=== PATIENT | female | born 1935 | race Caucasian/White ===

== ENCOUNTER 2017-08-08 10:50 | Outpatient (CLI) | payer MEDICARE ==
[2017-08-08] VITALS (16 sets, daily range): BP systolic 62–118; BP diastolic 41–76
[~2017-08-08 10:50] MED LIST: AMIO200T57 PO; APIX5TAB3 PO; ATOR10TA87 PO; CALC-855 PO; COR3.125T PO; FOLI1TAB16 PO; IRBE300T19 PO; MAGN500C16 PO; SPIR25TA3 PO; THI100T PO
== END 2017-08-08 23:59 | disposition home or self-care (01) ==
LOC: CARD DIAG 10:50
PROVIDERS: ATTEND Internal Medicine Cardiovascular Disease
DX: R42 Dizziness and giddiness (principal); I10 Essential (primary) hypertension; E11.9 Type 2 diabetes mellitus without complications; Z85.3 Personal history of malignant neoplasm of breast
CPT/HCPCS: 93660

== ENCOUNTER 2018-07-09 15:36 | Outpatient (CLI) | payer MEDICARE, MEDICAID ==
[~2018-07-09] VITALS: Ht 147.3 cm; Wt 55.8 kg
[~2018-07-09 15:36] MED LIST changes: +AMIO200T40 PO; -AMIO200T57 PO; -SPIR25TA3 PO; +SPIR25TA5 PO
[2018-07-09 16:16] LABS: TOTAL HEMOGLOBIN 14.6 G/dl (12.0-16.0)
[2018-07-09] MEDS ORDERED: albuterol 2.5 MG/3 ML nebule NEB ONE (16:40)
== END 2018-07-09 23:59 | disposition home or self-care (01) ==
LOC: RT 15:36
PROVIDERS: ATTEND Internal Medicine Cardiovascular Disease
DX: Z51.81 Encounter for therapeutic drug level monitoring (principal); R91.8 Other nonspecific abnormal finding of lung field; I10 Essential (primary) hypertension; E11.9 Type 2 diabetes mellitus without complications; Z79.899 Other long term (current) drug therapy; Z90.710 Acquired absence of both cervix and uterus
CPT/HCPCS: 71046; 85018; 94010; 94727; 94729

== ENCOUNTER 2018-12-14 05:35 | Inpatient (IN) | payer MEDICARE, MEDICAID ==
[2018-12-14] VITALS (33 sets, daily range): BP systolic 87–121; BP diastolic 44–58
[~2018-12-14] VITALS: Ht 154.9 cm; Wt 74.5 kg
[~2018-12-14 05:35] MED LIST changes: -AMIO200T40 PO; +AMIO200T61 PO
--- NOTE | 2018-12-14 05:50 | NUR ---
WHEN PT IS READY TO GO HOME CALL THE SON. HIS NAME IS CHARLIE [phone]
[2018-12-14 06:16] LABS: BASOPHILS % (AUTO) 0.6 % (0-1); EOSINOPHILS % (AUTO) 0.1 % (0-6); LYMPHOCYTES # (AUTO) 1.3 X10'3 (1.1-4.8); LYMPHOCYTES % (AUTO) 22.9 % (21-51); MEAN CORPUSCULAR HEMOGLOBIN 33.6 PG (27.0-31.0); MEAN CORPUSCULAR HGB CONC 33.1 g/dL (33.0-36.5); MEAN CORPUSCULAR VOLUME 101.5 FL (78-98); MEAN PLATELET VOLUME 8.3 FL (7.4-10.4); MONOCYTES # (AUTO) 0.4 X10'3 (0-0.9); MONOCYTES % (AUTO) 7.8 % (2-12); NEUTROPHILS # (AUTO) 3.8 X10'3 (1.8-7.7); NEUTROPHILS % (AUTO) 68.6 % (42-75); PLATELET COUNT 89 X10'3 (140-440); RED CELL DISTRIBUTION WIDTH 14.2 % (11.5-14.5); WHITE BLOOD COUNT 5.6 X10'3 (4.5-11.0)
[2018-12-14 06:37] LABS: ALANINE AMINOTRANSFERASE 14 U/L (12-78); ALBUMIN 1.5 G/DL (3.4-5.0); ALBUMIN/GLOBULIN RATIO 0.5 (1.1-1.5); ALKALINE PHOSPHATASE 45 IU/L (46-116); ANION GAP 17 (8-16); ASPARTATE AMINO TRANSFERASE 18 U/L (10-37); BILIRUBIN,TOTAL 0.2 MG/DL (0.1-1.0); CALCIUM 7.2 MG/DL (8.5-10.1); CHLORIDE 105 MMOL/L (99-107); CREATININE 5.28 MG/DL (0.40-0.90); GLUCOSE 97 MG/DL (70-104); LIPASE 159 U/L (73-393); POTASSIUM 4.9 MMOL/L (3.5-5.1); SODIUM 136 MMOL/L (135-145); TOTAL PROTEIN 4.3 G/DL (6.4-8.2); eGFR 8 ML/MIN
[2018-12-14 06:39] LABS: BLOOD UREA NITROGEN 161 MG/DL (7-18); BUN/CREATININE RATIO 30.5 (6.6-38.0)
[2018-12-14 06:42] LABS: TOTAL CARBON DIOXIDE 13.7 MMOL/L (24-32)
[2018-12-14 07:12] LABS: HEMATOCRIT 18.2 % (35.0-45.0)
--- NOTE | 2018-12-14 07:27 | NUR ---
NO BLOOD band placed on pt. after confirming that pt. is [facility]. Dr. Prescott aware.
[2018-12-14 07:29] LABS: CLARITY,URINE CLOUDY (Clear); COLOR,URINE YELLOW (Yellow); GLUCOSE, URINE NEGATIVE (Neg); KETONES,URINE TRACE mg/dl (Neg); LEUKOCYTE ESTERASE ,URINE LARGE (Neg); NITRITES, URINE NEGATIVE (Neg); OCCULT BLOOD,URINE LARGE (Neg); PROTEIN,URINE 30 mg/dl (Neg); UROBILINOGEN,URINE 0.2 E.U/dL (0.2-1.0)
[2018-12-14] MEDS ORDERED: ondansetron/PF 4mg/2ml inj IV ONE (07:30)
[2018-12-14] MEDS ORDERED: tranexamic acid 100mg/ml inj. IV ONE (07:30)
[2018-12-14] MEDS ORDERED: pantoprazole 40 MG vial IV ONE ×2 (07:30→07:35)
[2018-12-14] MEDS ORDERED: normal saline 1000ML IV soln IVB ONE ×2 (07:30→10:15)
[2018-12-14 07:33] LABS: UA COLLECTION TYPE CLN CATCH MIDSTREAM
[2018-12-14] MEDS ORDERED: octreotide 100mcg/1 ml ampule IV ONE (07:35)
[2018-12-14 07:40] LABS: SQUAMOUS EPITHELIAL CELL,UR MANY /LPF (FEW)
[2018-12-14] MEDS: morphine 2 MG/ML inj. syringe IV PRN (07:41)
[2018-12-14 07:43] LABS: AMORPHOUS URATES 1+; BACTERIA,URINE 2+ /HPF (Neg); RBC,URINE 0-2 /HPF (0-2); RENAL CELLS, URINE MODERATE /HPF; WBC,URINE TNTC /HPF (0-4)
--- NOTE | 2018-12-14 07:55 | NUR ---
PT TAKEN OUT TO CT VIA GURNEY BY Agolo.
--- NOTE | 2018-12-14 08:04 | NUR ---
PT BACK FROM CT.
--- NOTE | 2018-12-14 08:58 | NUR ---
Justus Espitia here to see pt. States she will page the hospitalist service to admit pt. VSS.
[2018-12-14] MEDS ORDERED: normal saline 1000ml 1,000 ML IV ONE (09:00)
[2018-12-14] MEDS ORDERED: normal saline 1000ml 1,000 ML IV SCH (09:51)
[2018-12-14] MEDS ORDERED: acetaminophen 325mg tablet PO PRN ×2 (09:55)
--- NOTE | 2018-12-14 10:44 | NUR ---
Dr. Prescott placing a central line in pt.
--- NOTE | 2018-12-14 11:18 | NUR ---
Dr. Prescott adjusting placement of CVL. Waiting to hang Levo until placement can be verified.
[2018-12-14] MEDS: NORepinephrine 8mg/ 250ml NS 250 ML IV PRN (11:27)
--- NOTE | 2018-12-14 12:30 | NUR ---
The patient, SYLVIA CHEN, 83 y/o, F admitted by TAYLER SPAIN MD, was given written information regarding hospital policies, unit procedures and contact persons. See Admission information.
[2018-12-14 13:30] LABS: HEMOGLOBIN A1C 4.7 % (4.5-6.2)
[2018-12-14] MEDS: SODIUM BICARBONATE IV SCH ×2 (14:30→21:22)
[2018-12-14] MEDS: WATER IV SCH ×2 (14:30→21:22)
[2018-12-14] MEDS: DEXTROSE IV SCH ×2 (14:30→21:22)
[2018-12-14] MEDS ORDERED: FURO-150 PO (17:55)
[2018-12-14] MEDS ORDERED: LEVO25TA2 PO (17:55)
--- NOTE | 2018-12-14 18:04 | NUR ---
Problems reprioritized. Patient report given, questions answered & plan of care reviewed with oncoming shift.
--- NOTE | 2018-12-14 18:25 | NUR ---
Patient in room CICU 2007. I have received report from Bella GRANT and had the opportunity to ask questions and assume patient care. Pt received awake & alert watching TV. No SOB no distress O2 @2L NC. Rhythm is sinus without ectopy.
[2018-12-14] MEDS ORDERED: epoetin 20,000 units/ml inj SQ ONE (18:50)
[2018-12-14 20:27] LABS: TOTAL PROTEIN,URINE RANDOM 41.3 MG/DL
[2018-12-15] VITALS (53 sets, daily range): BP systolic 83–131; BP diastolic 38–78
--- NOTE | 2018-12-15 02:15 | NUR ---
CVP reads -1, -3. Line zeroed and dressing taken down to check for kinks. No kinks found. CVP line is not sutured in. Donner is sutured in and CVP line does not clip into anchor. Line taped securely in place. Bob Lucero aware of CVP readings. MAP >65 while on levophed drip @ 8mcg/min. No new orders at this time. Addendum: 12/15/18 at 0231 by Leila Kaplan RN Pt is awake & alert watching TV.
[2018-12-15] MEDS ORDERED: diphenhydrAMINE 25mg capsule PO PRN (03:45)
[2018-12-15] MEDS ORDERED: glucagon, human recombinant 1mg kit SUBCUT PRN (04:10)
[2018-12-15] MEDS ORDERED: MESSAGE TO PHARMACY PO ONE (04:10)
[2018-12-15] MEDS ORDERED: dextrose ORAL solution 15 GM/59 ML bottle PO PRN ×2 (04:10)
[2018-12-15] MEDS ORDERED: dextrose 50%-water 50ml dispensing syringe IV PRN ×2 (04:10)
[2018-12-15 04:20] LABS: ALANINE AMINOTRANSFERASE 16 U/L (12-78); ALBUMIN 1.6 G/DL (3.4-5.0); ALBUMIN/GLOBULIN RATIO 0.6 (1.1-1.5); ALKALINE PHOSPHATASE 56 IU/L (46-116); ANION GAP 17 (8-16); ASPARTATE AMINO TRANSFERASE 20 U/L (10-37); BASOPHILS % (AUTO) 0.4 % (0-1); BILIRUBIN,TOTAL 0.2 MG/DL (0.1-1.0); BLOOD UREA NITROGEN 129 MG/DL (7-18); BUN/CREATININE RATIO 32.1 (6.6-38.0); CALCIUM 6.5 MG/DL (8.5-10.1); CHLORIDE 106 MMOL/L (99-107); CREATININE 4.02 MG/DL (0.40-0.90); EOSINOPHILS % (AUTO) 0.5 % (0-6); GLUCOSE 168 MG/DL (70-104); LYMPHOCYTES # (AUTO) 0.8 X10'3 (1.1-4.8); LYMPHOCYTES % (AUTO) 15.5 % (21-51); MEAN CORPUSCULAR HEMOGLOBIN 34.6 PG (27.0-31.0); MEAN CORPUSCULAR HGB CONC 32.9 g/dL (33.0-36.5); MEAN CORPUSCULAR VOLUME 105.1 FL (78-98); MEAN PLATELET VOLUME 8.2 FL (7.4-10.4); MONOCYTES # (AUTO) 0.3 X10'3 (0-0.9); MONOCYTES % (AUTO) 6.6 % (2-12); NEUTROPHILS # (AUTO) 3.7 X10'3 (1.8-7.7); PLATELET COUNT 57 X10'3 (140-440); POTASSIUM 4.1 MMOL/L (3.5-5.1); RED BLOOD COUNT 1.11 X10'6 (4.20-5.60); RED CELL DISTRIBUTION WIDTH 14.4 % (11.5-14.5); SODIUM 136 MMOL/L (135-145); TOTAL PROTEIN 4.5 G/DL (6.4-8.2); WHITE BLOOD COUNT 4.9 X10'3 (4.5-11.0); eGFR 11 ML/MIN
[2018-12-15 04:22] LABS: TOTAL CARBON DIOXIDE 12.9 MMOL/L (24-32)
[2018-12-15 04:28] LABS: HEMOGLOBIN 3.8 g/dl (12.0-16.0)
[2018-12-15 04:29] LABS: HEMATOCRIT 11.6 % (35.0-45.0)
--- NOTE | 2018-12-15 04:30 | NUR ---
Lab results reported to Bob Lucero. Hgb 3.3 Hct 11.6. No new orders at this time.
--- NOTE | 2018-12-15 04:43 | NUR ---
Bladder scan done as pt has no urge to void. Findings of 132ml urine in bladder.
[2018-12-15] MEDS ORDERED: iron sucrose complex injection 300 MG in normal saline 250ml IV soln 235 ML IV ONE (05:15)
[2018-12-15] MEDS: WATER IV SCH (05:17)
[2018-12-15] MEDS: SODIUM BICARBONATE IV SCH (05:17)
[2018-12-15] MEDS: DEXTROSE IV SCH (05:17)
[2018-12-15] MEDS ORDERED: sodium bicarbonate (8.4%) 1 mEq/ml syringe IV ONE (05:20)
[2018-12-15] MEDS: NORepinephrine 8mg/ 250ml NS 250 ML IV PRN ×2 (05:32→20:10)
--- NOTE | 2018-12-15 06:27 | NUR ---
Problems reprioritized. Patient report given, questions answered & plan of care reviewed with Deepa GRANT.
--- NOTE | 2018-12-15 06:34 | NUR ---
Patient in room CICU 2007. I have received report from Leila GRANT.
[2018-12-15] MEDS: atorvastatin 10mg tablet PO SCH (07:08)
[2018-12-15] MEDS: levoTHYROXINE 25mcg tablet PO SCH (07:08)
[2018-12-15] MEDS: folic acid 1mg tablet PO SCH (07:08)
[2018-12-15] MEDS: thiamine 100mg tablet PO SCH (07:08)
[2018-12-15] MEDS: calcium carbonate/vitamin D3 tablet PO SCH (07:08)
[2018-12-15] MEDS: sodium bicarbonate inj. 75 ML in dextrose 5% water 500ml 500 ML IV SCH ×3 (07:35→20:19)
[2018-12-15] MEDS: insulin Lispro (HumaLOG) vial - multi-dose SQ SCH ×2 (08:06→20:45)
[2018-12-15 09:48] LABS: MEAN CORPUSCULAR HEMOGLOBIN 34.7 PG (27.0-31.0); MEAN PLATELET VOLUME 8.6 FL (7.4-10.4); PLATELET COUNT 97 X10'3 (140-440); RED BLOOD COUNT 1.88 X10'6 (4.20-5.60); WHITE BLOOD COUNT 8.7 X10'3 (4.5-11.0)
[2018-12-15 09:52] LABS: HEMOGLOBIN 6.5 g/dl (12.0-16.0)
[2018-12-15 09:53] LABS: HEMATOCRIT 19.2 % (35.0-45.0)
[2018-12-15] MEDS ORDERED: normal saline 1000ml 1,000 ML IV ONE ×2 (10:50→11:50)
--- NOTE | 2018-12-15 11:00 | NUR ---
Per low albumin, RN recommends albumin. Dr. Land, no albumin ordered.
[2018-12-15 11:02] LABS: ALBUMIN 1.8 G/DL (3.4-5.0); ANION GAP 14 (8-16); BLOOD UREA NITROGEN 125 MG/DL (7-18); BUN/CREATININE RATIO 29.8 (6.6-38.0); CHLORIDE 103 MMOL/L (99-107); GLUCOSE 142 MG/DL (70-104); SODIUM 137 MMOL/L (135-145); TOTAL CARBON DIOXIDE 20.3 MMOL/L (24-32); eGFR 10 ML/MIN
[2018-12-15 11:05] LABS: PHOSPHORUS 4.2 MG/DL (2.3-4.5); POTASSIUM 4.2 MMOL/L (3.5-5.1)
[2018-12-15] MEDS ORDERED: PEG 3350/Na sulf,bicarb,Cl/KCl oral sol 4 liter bottle PO ONE (11:30)
[2018-12-15] MEDS: sodium ferric gluc complex inj 125 MG in normal saline 100ml IV soln 100 ML IV SCH (13:18)
[2018-12-15] MEDS: morphine 2 MG/ML inj. syringe IV PRN (14:21)
[2018-12-15 14:44] LABS: CLARITY,URINE CLOUDY (Clear); COLOR,URINE YELLOW (Yellow); GLUCOSE, URINE NEGATIVE (Neg); KETONES,URINE NEGATIVE (Neg); LEUKOCYTE ESTERASE ,URINE NEGATIVE (Neg); NITRITES, URINE NEGATIVE (Neg); OCCULT BLOOD,URINE LARGE (Neg); PROTEIN,URINE NEGATIVE (Neg); UROBILINOGEN,URINE 0.2 E.U/dL (0.2-1.0)
[2018-12-15] MEDS: ondansetron/PF 4mg/2ml inj IV PRN (14:48)
[2018-12-15 14:53] LABS: UA COLLECTION TYPE FOLEY CATH
--- NOTE | 2018-12-15 14:53 | NUR ---
pt. reporting 8/10 generalized abdominal pain accompanied by nausea. Morphine and zofran given with good affect
[2018-12-15 14:58] LABS: AMORPHOUS URATES 2+; BACTERIA,URINE NONE SEEN /HPF (Neg); SQUAMOUS EPITHELIAL CELL,UR FEW /LPF (FEW)
[2018-12-15 15:00] LABS: WBC,URINE 0-4 /HPF (0-4)
[2018-12-15 15:56] LABS: UA EOSINOPHILS NO EOS /HPF
--- NOTE | 2018-12-15 17:18 | NUR ---
Pt. requiring increased rate of levophed and tachycardic to the 110s. 250cc bolus of NS given with good affect. MAP goal achieved.
[2018-12-15] MEDS ORDERED: albumin (human) 25% 100 ML IV solution IV ONE ×2 (18:00)
[2018-12-15] MEDS ORDERED: albumin (human) 25% 100ml IV 300 ML IV ONE (18:00)
--- NOTE | 2018-12-15 18:45 | NUR ---
Dr. Woods notified regarding pt's increased need of levophed to try and achieve MAP goal. Per Dr. Woods 300cc of 25% albumin to be given; pt. agreed to receiving the albumin. Levophed gtt at [facility] [place]. Amanda from social service agency director contacted regarding granddaughter's report of neglect; Tripp from [facility] notified regarding granddaughter's report. director of food and nutrition services consult ordered. Report given to Leila GRANT.
[2018-12-15] MEDS: insulin glargine (Lantus) pen - multi-dose SQ SCH (20:43)
[2018-12-16] VITALS (45 sets, daily range): BP systolic 88–126; BP diastolic 43–85
[2018-12-16 01:59] LABS: BASOPHILS % (AUTO) 0.2 % (0-1); EOSINOPHILS % (AUTO) 0 % (0-6); LYMPHOCYTES # (AUTO) 1.2 X10'3 (1.1-4.8); LYMPHOCYTES % (AUTO) 11.5 % (21-51); MEAN CORPUSCULAR HEMOGLOBIN 33.7 PG (27.0-31.0); MEAN CORPUSCULAR HGB CONC 33.5 g/dL (33.0-36.5); MEAN CORPUSCULAR VOLUME 100.4 FL (78-98); MEAN PLATELET VOLUME 8.5 FL (7.4-10.4); MONOCYTES # (AUTO) 0.5 X10'3 (0-0.9); MONOCYTES % (AUTO) 4.8 % (2-12); NEUTROPHILS % (AUTO) 83.5 % (42-75); PLATELET COUNT 66 X10'3 (140-440); RED BLOOD COUNT 1.67 X10'6 (4.20-5.60); WHITE BLOOD COUNT 10.8 X10'3 (4.5-11.0)
[2018-12-16 02:03] LABS: HEMOGLOBIN 5.6 g/dl (12.0-16.0)
[2018-12-16 02:04] LABS: HEMATOCRIT 16.7 % (35.0-45.0)
[2018-12-16] MEDS: insulin Lispro (HumaLOG) vial - multi-dose SQ SCH (02:10)
[2018-12-16 02:13] LABS: ALANINE AMINOTRANSFERASE 14 U/L (12-78); ALBUMIN/GLOBULIN RATIO 1.6 (1.1-1.5); ALKALINE PHOSPHATASE 37 IU/L (46-116); ANION GAP 12 (8-16); ASPARTATE AMINO TRANSFERASE 11 U/L (10-37); BILIRUBIN,TOTAL 0.3 MG/DL (0.1-1.0); BLOOD UREA NITROGEN 107 MG/DL (7-18); BUN/CREATININE RATIO 29.5 (6.6-38.0); CALCIUM 6.6 MG/DL (8.5-10.1); CHLORIDE 105 MMOL/L (99-107); CREATININE 3.63 MG/DL (0.40-0.90); GLUCOSE 185 MG/DL (70-104); POTASSIUM 3.6 MMOL/L (3.5-5.1); SODIUM 140 MMOL/L (135-145); TOTAL CARBON DIOXIDE 22.9 MMOL/L (24-32); TOTAL PROTEIN 4.9 G/DL (6.4-8.2); eGFR 12 ML/MIN
[2018-12-16] MEDS: sodium bicarbonate inj. 75 ML in dextrose 5% water 500ml 500 ML IV SCH (04:02)
[2018-12-16] MEDS: NORepinephrine 8mg/ 250ml NS 250 ML IV PRN ×2 (05:15→18:51)
[2018-12-16] MEDS: thiamine 100mg tablet PO SCH (07:00)
[2018-12-16] MEDS: calcium carbonate/vitamin D3 tablet PO SCH (07:00)
[2018-12-16] MEDS: folic acid 1mg tablet PO SCH (07:00)
[2018-12-16] MEDS: levoTHYROXINE 25mcg tablet PO SCH (07:00)
[2018-12-16] MEDS: atorvastatin 10mg tablet PO SCH (07:00)
[2018-12-16] MEDS: sodium ferric gluc complex inj 125 MG in normal saline 100ml IV soln 100 ML IV SCH (08:22)
[2018-12-16] MEDS ORDERED: potassium Cl 20mEq/100mL bag 100 ML IV PRN (10:35)
[2018-12-16 10:46] LABS: MAGNESIUM 1.6 MG/DL (1.5-2.4)
[2018-12-16] MEDS ORDERED: potassium Cl 20 mEq SR tablet PO PRN (11:35)
[2018-12-16] MEDS ORDERED: magnesium 2GM in 50ml NS 50 ML IV ONE (12:10)
[2018-12-16] MEDS: normal saline 1000ml 1,000 ML IV SCH (12:15)
--- NOTE | 2018-12-16 12:39 | NUR ---
pt blood sugar 50. pt states lightheaded. gave glucoshot x2. primary RN notified.
[2018-12-16] MEDS: potassium Cl 20 mEq SR tablet PO PRN (12:48)
--- NOTE | 2018-12-16 16:14 | NUR ---
pt. feeling tired. Blood sugar 117. Blood pressure MAP goal achieved with levophed gtt running.
--- NOTE | 2018-12-16 19:36 | NUR ---
Patient in room CICU 2007. I have received report and had the opportunity to ask questions and assume patient care.
[2018-12-16] MEDS: insulin glargine (Lantus) pen - multi-dose SQ SCH (21:00)
--- NOTE | 2018-12-16 22:00 | NUR ---
pt is resting. vital signs stable. no s/s of distress or change in condition noted. will continue to monitor.
[2018-12-17] VITALS (23 sets, daily range): BP systolic 89–122; BP diastolic 48–67
--- NOTE | 2018-12-17 | NUR ---
pt is resting. vital signs stable. no s/s of distress or change in condition noted. will continue to monitor.
--- NOTE | 2018-12-17 02:00 | NUR ---
pt is resting. vital signs stable. no s/s of distress or change in condition noted. will continue to monitor.
[2018-12-17] MEDS: normal saline 1000ml 1,000 ML IV SCH ×2 (02:18→16:34)
[2018-12-17 02:52] LABS: BASOPHILS % (AUTO) 0.5 % (0-1); EOSINOPHILS # (AUTO) 0.1 X10'3 (0-0.9); EOSINOPHILS % (AUTO) 1.1 % (0-6); LYMPHOCYTES # (AUTO) 1.7 X10'3 (1.1-4.8); LYMPHOCYTES % (AUTO) 18.9 % (21-51); MEAN CORPUSCULAR HEMOGLOBIN 33.9 PG (27.0-31.0); MEAN CORPUSCULAR HGB CONC 33.7 g/dL (33.0-36.5); MEAN CORPUSCULAR VOLUME 100.5 FL (78-98); MEAN PLATELET VOLUME 8.7 FL (7.4-10.4); MONOCYTES # (AUTO) 0.8 X10'3 (0-0.9); MONOCYTES % (AUTO) 8.5 % (2-12); NEUTROPHILS # (AUTO) 6.4 X10'3 (1.8-7.7); PLATELET COUNT 66 X10'3 (140-440); RED BLOOD COUNT 1.81 X10'6 (4.20-5.60); RED CELL DISTRIBUTION WIDTH 14.6 % (11.5-14.5)
[2018-12-17 02:59] LABS: HEMATOCRIT 18.2 % (35.0-45.0); HEMOGLOBIN 6.1 g/dl (12.0-16.0)
[2018-12-17 03:07] LABS: ANION GAP 6 (8-16); CHLORIDE 106 MMOL/L (99-107); GLUCOSE 146 MG/DL (70-104); POTASSIUM 4.5 MMOL/L (3.5-5.1); SODIUM 139 MMOL/L (135-145); TOTAL CARBON DIOXIDE 27.4 MMOL/L (24-32)
[2018-12-17 03:08] LABS: ALANINE AMINOTRANSFERASE 13 U/L (12-78); ALBUMIN 2.5 G/DL (3.4-5.0); ALBUMIN/GLOBULIN RATIO 1.1 (1.1-1.5); ALKALINE PHOSPHATASE 46 IU/L (46-116); ASPARTATE AMINO TRANSFERASE 15 U/L (10-37); BILIRUBIN,TOTAL 0.3 MG/DL (0.1-1.0); BLOOD UREA NITROGEN 96 MG/DL (7-18); BUN/CREATININE RATIO 28.2 (6.6-38.0); CALCIUM 7.4 MG/DL (8.5-10.1); TOTAL PROTEIN 4.7 G/DL (6.4-8.2); eGFR 13 ML/MIN
[2018-12-17 03:25] LABS: BANDS% (MANUAL) 4 % (0-10); EOSINOPHILS % (MANUAL) 2 % (0-6); LYMPHOCYTES % (MANUAL) 13 % (21-51); MONOCYTES % (MANUAL) 8 % (2-12); NEUTROPHILS % (MANUAL) 70 % (42-75); PLATELET ESTIMATE DECREASED; REACTIVE LYMPHOCYTES % 3 % (0-0); TOTAL CELLS COUNTED 100
[2018-12-17 03:26] LABS: HYPOCHROMASIA 1+
--- NOTE | 2018-12-17 04:32 | NUR ---
pt is resting. vital signs stable. no s/s of distress or change in condition noted. will continue to monitor.
[2018-12-17] MEDS: NORepinephrine 8mg/ 250ml NS 250 ML IV PRN (05:34)
--- NOTE | 2018-12-17 06:45 | NUR ---
Patient in room CICU 2007. I have received report from Adelia GRANT and had the opportunity to ask questions and assume patient care.
[2018-12-17] MEDS: atorvastatin 10mg tablet PO SCH (09:17)
[2018-12-17] MEDS: calcium carbonate/vitamin D3 tablet PO SCH (09:18)
[2018-12-17] MEDS: folic acid 1mg tablet PO SCH (09:18)
[2018-12-17] MEDS: levoTHYROXINE 25mcg tablet PO SCH (09:18)
[2018-12-17] MEDS: thiamine 100mg tablet PO SCH (09:18)
[2018-12-17] MEDS: sodium ferric gluc complex inj 125 MG in normal saline 100ml IV soln 100 ML IV SCH (09:31)
[2018-12-17] MEDS: epoetin 20,000 units/ml inj SQ SCH (09:38)
[2018-12-17] MEDS ORDERED: benzocaine/menthol oral lozeng 1 EACH BOX MM PRN (18:00)
--- NOTE | 2018-12-17 18:26 | NUR ---
Problems reprioritized. Patient report given, questions answered & plan of care reviewed with Adelia GRANT.
--- NOTE | 2018-12-17 18:30 | NUR ---
Went in to discuss patient's code status and the reason to place band on wrist. Patient states she does not want to be DNR status after this nurse thoroughly explained what it was verse what FULL code status was. Oncoming nurse Adelia GRANT witnessed patient refusal. After discussing with cupola charger, Adelia GRANT called Dr. Yanes and made him aware that patient wanted to be FULL code and have compressions and medications given in the event of arrest as long as there is no blood given. Order will be changed to FULL code status per Dr. Yanes.
--- NOTE | 2018-12-17 18:30 | NUR ---
Patient in room CICU 2007. I have received report and had the opportunity to ask questions and assume patient care.
--- NOTE | 2018-12-17 20:04 | NUR ---
spoke with md clay. explained that pt is adamant about remaining full code. stated per the family meeting with the pt medical POA and himself, she will remain DNR. Pt has hx of dementia and confusion. pt refuses to wear the DNR band at this time.
[2018-12-17] MEDS: insulin glargine (Lantus) pen - multi-dose SQ SCH (21:00)
--- NOTE | 2018-12-17 21:00 | NUR ---
pt is able to participate more with ADL's compared to yesterday. pt is able to assist more with turning and tolerates the activity. will continue to monitor
[2018-12-18] VITALS (24 sets, daily range): BP systolic 85–109; BP diastolic 48–71
--- NOTE | 2018-12-18 | NUR ---
Pt is resting. vital signs stable. no s/s of distress or change in condition noted. will continue to monitor.
--- NOTE | 2018-12-18 03:24 | NUR ---
Pt is resting. vital signs stable. no s/s of distress or change in condition noted. will continue to monitor.
[2018-12-18 03:32] LABS: BASOPHILS % (AUTO) 0.6 % (0-1); EOSINOPHILS # (AUTO) 0.1 X10'3 (0-0.9); EOSINOPHILS % (AUTO) 2.3 % (0-6); LYMPHOCYTES # (AUTO) 0.9 X10'3 (1.1-4.8); LYMPHOCYTES % (AUTO) 19.6 % (21-51); MEAN CORPUSCULAR HEMOGLOBIN 34.1 PG (27.0-31.0); MEAN CORPUSCULAR HGB CONC 33.6 g/dL (33.0-36.5); MEAN CORPUSCULAR VOLUME 101.4 FL (78-98); MEAN PLATELET VOLUME 8.8 FL (7.4-10.4); MONOCYTES # (AUTO) 0.4 X10'3 (0-0.9); MONOCYTES % (AUTO) 8.7 % (2-12); NEUTROPHILS # (AUTO) 3.3 X10'3 (1.8-7.7); NEUTROPHILS % (AUTO) 68.8 % (42-75); PLATELET COUNT 51 X10'3 (140-440); RED BLOOD COUNT 1.57 X10'6 (4.20-5.60); RED CELL DISTRIBUTION WIDTH 14.7 % (11.5-14.5); WHITE BLOOD COUNT 4.8 X10'3 (4.5-11.0)
[2018-12-18 03:39] LABS: HEMOGLOBIN 5.4 g/dl (12.0-16.0)
[2018-12-18 03:57] LABS: ALANINE AMINOTRANSFERASE 14 U/L (12-78); ALBUMIN 2.2 G/DL (3.4-5.0); ALKALINE PHOSPHATASE 51 IU/L (46-116); ANION GAP 10 (8-16); ASPARTATE AMINO TRANSFERASE 16 U/L (10-37); BILIRUBIN,TOTAL 0.3 MG/DL (0.1-1.0); BLOOD UREA NITROGEN 92 MG/DL (7-18); BUN/CREATININE RATIO 29.9 (6.6-38.0); CALCIUM 7.6 MG/DL (8.5-10.1); CHLORIDE 109 MMOL/L (99-107); CREATININE 3.08 MG/DL (0.40-0.90); GLUCOSE 92 MG/DL (70-104); POTASSIUM 4.2 MMOL/L (3.5-5.1); SODIUM 142 MMOL/L (135-145); TOTAL PROTEIN 4.4 G/DL (6.4-8.2); eGFR 14 ML/MIN
[2018-12-18] MEDS: normal saline 1000ml 1,000 ML IV SCH ×2 (04:10→17:44)
[2018-12-18] MEDS: calcium carbonate/vitamin D3 tablet PO SCH (08:55)
[2018-12-18] MEDS: folic acid 1mg tablet PO SCH (08:56)
[2018-12-18] MEDS: levoTHYROXINE 25mcg tablet PO SCH (08:56)
[2018-12-18] MEDS: atorvastatin 10mg tablet PO SCH (08:56)
[2018-12-18] MEDS: thiamine 100mg tablet PO SCH (08:56)
[2018-12-18] MEDS: sodium ferric gluc complex inj 125 MG in normal saline 100ml IV soln 100 ML IV SCH (10:02)
[2018-12-18] MEDS: megestrol acetate 400mg/10ml UD oral suspension PO SCH (13:24)
[2018-12-18] MEDS ORDERED: NORepinephrine 8mg/ 250ml NS 250 ML IV PRN (13:47)
--- NOTE | 2018-12-18 14:42 | NUR ---
Initial: Pt admit with anemia, JONATHON, and hypotension. Per MD notes JONATHON and hypotension gradually improving however Hgb is going down. Pt without a BM since admit. MD would like to get a stool guaiac however currently not on any bowel care. D/w dietary to send prune juice with dinner tonight. Pt currently on renal diet documented with 0-25% PO intake with refusal of multiple meals. Pt seen by RD yesterday however pt expresses no food preferences. D/w MD recommendation for ONS, [facility] Pt started on Megace today. Will continue to follow. Recommendations: 1) Continue renal diet 2) Nepro TID to be sent [facility] 3) Continue appetite stimulant per MD 4) Continue routine Thiamine and Folic acid given elevated MCV 5) Routine bowel care 6) Wt per rx Addendum: 12/18/18 at [address] Amended: Links added.
[2018-12-18 15:47] LABS: OCCULT BLOOD STOOL POSITIVE (Neg)
[2018-12-18] MEDS ORDERED: pantoprazole 40 MG vial IV SCH (18:10)
--- NOTE | 2018-12-18 18:35 | NUR ---
Patient in room CICU 2007. I have received report from Chente GRANT, and had the opportunity to ask questions and assume patient care.
--- NOTE | 2018-12-18 19:45 | NUR ---
PT sitting up in bed with no s/s of distress noted at this time. VSS, levophed had been of since sometime during previous shift. PT is on RA and tolerating well, O2 sat >97%. PT attempting to eat dinner but states she doesn't have much of an appetite. Also c/o a sore tongue, examined PT's mouth and no sores or areas of concern noted. Barragan in place draining to gravity. Bed is locked and low. Call light is within reach. Will continue to monitor.
[2018-12-18] MEDS: pantoprazole 40 MG vial IV SCH (19:49)
[2018-12-18] MEDS: insulin glargine (Lantus) pen - multi-dose SQ SCH (21:00)
--- NOTE | 2018-12-18 23:35 | NUR ---
PT sleeping with no s/s of distress noted at this time. VSS. Bed is locked and low. Call light is within reach. Will continue to monitor.
[2018-12-19] VITALS (20 sets, daily range): BP systolic 87–122; BP diastolic 48–69
--- NOTE | 2018-12-19 02:25 | NUR ---
PT resting, sleeping off and on with no s/s of distress noted at this time. VSS. Bed is locked and low. Call light is within reach. Will continue to monitor.
[2018-12-19 03:10] LABS: BASOPHILS % (AUTO) 0.7 % (0-1); EOSINOPHILS # (AUTO) 0.1 X10'3 (0-0.9); EOSINOPHILS % (AUTO) 1.8 % (0-6); LYMPHOCYTES % (AUTO) 20.9 % (21-51); MEAN CORPUSCULAR HEMOGLOBIN 33.8 PG (27.0-31.0); MEAN CORPUSCULAR HGB CONC 33.2 g/dL (33.0-36.5); MEAN CORPUSCULAR VOLUME 101.8 FL (78-98); MEAN PLATELET VOLUME 8.4 FL (7.4-10.4); MONOCYTES # (AUTO) 0.4 X10'3 (0-0.9); MONOCYTES % (AUTO) 8.4 % (2-12); NEUTROPHILS # (AUTO) 3.1 X10'3 (1.8-7.7); NEUTROPHILS % (AUTO) 68.2 % (42-75); RED BLOOD COUNT 1.61 X10'6 (4.20-5.60); RED CELL DISTRIBUTION WIDTH 14.5 % (11.5-14.5); WHITE BLOOD COUNT 4.6 X10'3 (4.5-11.0)
[2018-12-19 03:16] LABS: HEMOGLOBIN 5.4 g/dl (12.0-16.0)
[2018-12-19 03:17] LABS: HEMATOCRIT 16.4 % (35.0-45.0); PLATELET COUNT 50 X10'3 (140-440)
[2018-12-19 03:21] LABS: ALANINE AMINOTRANSFERASE 11 U/L (12-78); ALBUMIN 2.1 G/DL (3.4-5.0); ALKALINE PHOSPHATASE 59 IU/L (46-116); ANION GAP 9 (8-16); ASPARTATE AMINO TRANSFERASE 11 U/L (10-37); BILIRUBIN,TOTAL 0.2 MG/DL (0.1-1.0); BLOOD UREA NITROGEN 79 MG/DL (7-18); CALCIUM 7.7 MG/DL (8.5-10.1); CHLORIDE 111 MMOL/L (99-107); CREATININE 2.72 MG/DL (0.40-0.90); GLUCOSE 85 MG/DL (70-104); POTASSIUM 4.1 MMOL/L (3.5-5.1); SODIUM 142 MMOL/L (135-145); TOTAL PROTEIN 4.3 G/DL (6.4-8.2); eGFR 17 ML/MIN
--- NOTE | 2018-12-19 06:36 | NUR ---
Problems reprioritized. Patient report given, questions answered & plan of care reviewed with Chente GRANT.
[2018-12-19] MEDS: normal saline 1000ml 1,000 ML IV SCH ×2 (07:13→20:10)
[2018-12-19] MEDS: levoTHYROXINE 25mcg tablet PO SCH (08:07)
[2018-12-19] MEDS: atorvastatin 10mg tablet PO SCH (08:07)
[2018-12-19] MEDS: thiamine 100mg tablet PO SCH (08:07)
[2018-12-19] MEDS: folic acid 1mg tablet PO SCH (08:07)
[2018-12-19] MEDS: pantoprazole 40 MG vial IV SCH ×2 (08:07→20:19)
[2018-12-19] MEDS: megestrol acetate 400mg/10ml UD oral suspension PO SCH (08:08)
[2018-12-19] MEDS: calcium carbonate/vitamin D3 tablet PO SCH (08:08)
[2018-12-19] MEDS: sodium ferric gluc complex inj 125 MG in normal saline 100ml IV soln 100 ML IV SCH (08:22)
--- NOTE | 2018-12-19 09:20 | NUR ---
one earing removed from left ear and placed in labeled container and put with belongings
[2018-12-19] MEDS: epoetin 20,000 units/ml inj SQ SCH (09:25)
--- NOTE | 2018-12-19 17:30 | NUR ---
Patient transported to [facility] per MD orders. Transferred to bed and placed on monitor in stable position, with all belongings
--- NOTE | 2018-12-19 17:32 | NUR ---
RECEIVED REPORT AND PATIENT FROM ICU. PATIENT PLACED IN ROOM 310. HOB UP CALL LIGHT IN REACH. DENIES CHEST PAIN , AND NAUSEA; HOWEVER, SOB WITH ACTIVITY NOTED.O2 SAT 98% ON ROOM AIR. Addendum: 12/19/18 at 1744 by Josi Torres RN Amended: Links added.
--- NOTE | 2018-12-19 18:15 | NUR ---
Patient in room MED 310. I have received report from Padmini Cohen RN and had the opportunity to ask questions and assume patient care.
[2018-12-19] MEDS: insulin glargine (Lantus) pen - multi-dose SQ SCH (21:00)
[2018-12-20 02:00] VITALS: BP 98/54
--- NOTE | 2018-12-20 05:29 | NUR ---
Patient's A1C is 4.7. No record of patient taking any medications for DM2. Interventions still in place. Patient last accucheck was 82. Will continue to monitor patient for duration of shift.
[2018-12-20 06:00] VITALS: BP 103/61
--- NOTE | 2018-12-20 06:28 | NUR ---
Problems reprioritized. Patient report given, questions answered & plan of care reviewed with RUDY Temple.
--- NOTE | 2018-12-20 06:38 | NUR ---
Patient in room MED 310. I have received report from RUDY RAMIREZ and had the opportunity to ask questions and assume patient care.
[2018-12-20 07:11] LABS: BASOPHILS % (AUTO) 0.8 % (0-1); EOSINOPHILS # (AUTO) 0.1 X10'3 (0-0.9); EOSINOPHILS % (AUTO) 1.9 % (0-6); LYMPHOCYTES # (AUTO) 0.8 X10'3 (1.1-4.8); MEAN CORPUSCULAR HEMOGLOBIN 34.2 PG (27.0-31.0); MEAN CORPUSCULAR HGB CONC 33.3 g/dL (33.0-36.5); MEAN CORPUSCULAR VOLUME 102.4 FL (78-98); MEAN PLATELET VOLUME 8.7 FL (7.4-10.4); MONOCYTES # (AUTO) 0.4 X10'3 (0-0.9); MONOCYTES % (AUTO) 9.9 % (2-12); NEUTROPHILS % (AUTO) 68.4 % (42-75); PLATELET COUNT 54 X10'3 (140-440); RED BLOOD COUNT 1.59 X10'6 (4.20-5.60); RED CELL DISTRIBUTION WIDTH 14.9 % (11.5-14.5); WHITE BLOOD COUNT 4.4 X10'3 (4.5-11.0)
[2018-12-20 07:21] LABS: HEMATOCRIT 16.3 % (35.0-45.0); HEMOGLOBIN 5.4 g/dl (12.0-16.0)
[2018-12-20] MEDS: thiamine 100mg tablet PO SCH (07:30)
[2018-12-20] MEDS: pantoprazole 40 MG vial IV SCH ×2 (07:30→19:06)
[2018-12-20] MEDS: levoTHYROXINE 25mcg tablet PO SCH (07:30)
[2018-12-20] MEDS: iron sucrose complex injection 100 MG in normal saline 100ml IV soln 100 ML IV SCH (07:31)
[2018-12-20] MEDS: folic acid 1mg tablet PO SCH (07:31)
[2018-12-20] MEDS: atorvastatin 10mg tablet PO SCH (07:31)
[2018-12-20] MEDS: calcium carbonate/vitamin D3 tablet PO SCH (07:31)
[2018-12-20 07:36] LABS: ALANINE AMINOTRANSFERASE 12 U/L (12-78); ALBUMIN/GLOBULIN RATIO 0.9 (1.1-1.5); ALKALINE PHOSPHATASE 60 IU/L (46-116); ANION GAP 10 (8-16); ASPARTATE AMINO TRANSFERASE 16 U/L (10-37); BILIRUBIN,TOTAL 0.3 MG/DL (0.1-1.0); BLOOD UREA NITROGEN 78 MG/DL (7-18); BUN/CREATININE RATIO 28.9 (6.6-38.0); CALCIUM 7.7 MG/DL (8.5-10.1); CHLORIDE 114 MMOL/L (99-107); GLUCOSE 74 MG/DL (70-104); POTASSIUM 4.1 MMOL/L (3.5-5.1); SODIUM 144 MMOL/L (135-145); TOTAL CARBON DIOXIDE 20.5 MMOL/L (24-32); TOTAL PROTEIN 4.3 G/DL (6.4-8.2); eGFR 17 ML/MIN
[2018-12-20] MEDS: megestrol acetate 400mg/10ml UD oral suspension PO SCH (07:40)
--- NOTE | 2018-12-20 07:40 | NUR ---
MARIAM DELAROSA NOTIFIED OF H/H NO ORDERS RECEIVED
[2018-12-20] MEDS: normal saline 1000ml 1,000 ML IV SCH ×2 (09:30→19:06)
[2018-12-20 10:54] VITALS: BP 106/62
[2018-12-20 14:59] VITALS: BP 115/61
[2018-12-20 18:00] VITALS: BP 104/59
--- NOTE | 2018-12-20 18:16 | NUR ---
Problems reprioritized. Patient report given, questions answered & plan of care reviewed with RUDY KENDRICK.
[2018-12-20] MEDS: insulin glargine (Lantus) pen - multi-dose SQ SCH (21:00)
--- NOTE | 2018-12-20 21:54 | NUR ---
The patient's 2100 blood sugar was 86, alert, oriented.
[2018-12-20 22:00] VITALS: BP 97/58
[2018-12-21] VITALS (7 sets, daily range): BP systolic 102–132; BP diastolic 56–74
--- NOTE | 2018-12-21 06:10 | NUR ---
Patient in room MED 310. I have received report from Sangeeta GRANT and had the opportunity to ask questions and assume patient care.
[2018-12-21] MEDS: thiamine 100mg tablet PO SCH (09:09)
[2018-12-21] MEDS: atorvastatin 10mg tablet PO SCH (09:09)
[2018-12-21] MEDS: calcium carbonate/vitamin D3 tablet PO SCH (09:09)
[2018-12-21] MEDS: megestrol acetate 400mg/10ml UD oral suspension PO SCH (09:09)
[2018-12-21] MEDS: normal saline 1000ml 1,000 ML IV SCH (09:09)
[2018-12-21] MEDS: folic acid 1mg tablet PO SCH (09:09)
[2018-12-21] MEDS: pantoprazole 40 MG vial IV SCH (09:10)
[2018-12-21] MEDS: iron sucrose complex injection 100 MG in normal saline 100ml IV soln 100 ML IV SCH (09:11)
[2018-12-21] MEDS: levoTHYROXINE 25mcg tablet PO SCH (09:11)
--- NOTE | 2018-12-21 10:00 | NUR ---
Orientee documentation: I have reviewed and agree with all interventions, assessments performed and documented by Raad Rosario RN.
[2018-12-21 10:41] LABS: BASOPHILS % (AUTO) 0.5 % (0-1); EOSINOPHILS # (AUTO) 0.1 X10'3 (0-0.9); EOSINOPHILS % (AUTO) 1.4 % (0-6); LYMPHOCYTES # (AUTO) 0.9 X10'3 (1.1-4.8); LYMPHOCYTES % (AUTO) 18.4 % (21-51); MEAN CORPUSCULAR HEMOGLOBIN 34.3 PG (27.0-31.0); MEAN CORPUSCULAR HGB CONC 33.1 g/dL (33.0-36.5); MEAN CORPUSCULAR VOLUME 103.6 FL (78-98); MEAN PLATELET VOLUME 8.7 FL (7.4-10.4); MONOCYTES # (AUTO) 0.5 X10'3 (0-0.9); MONOCYTES % (AUTO) 9.8 % (2-12); NEUTROPHILS # (AUTO) 3.2 X10'3 (1.8-7.7); NEUTROPHILS % (AUTO) 69.9 % (42-75); PLATELET COUNT 63 X10'3 (140-440); RED BLOOD COUNT 1.83 X10'6 (4.20-5.60); WHITE BLOOD COUNT 4.6 X10'3 (4.5-11.0)
[2018-12-21 10:53] LABS: HEMOGLOBIN 6.3 g/dl (12.0-16.0)
[2018-12-21 10:54] LABS: HEMATOCRIT 18.9 % (35.0-45.0)
[2018-12-21 10:56] LABS: ALANINE AMINOTRANSFERASE 12 U/L (12-78); ALBUMIN 2.2 G/DL (3.4-5.0); ALBUMIN/GLOBULIN RATIO 0.8 (1.1-1.5); ALKALINE PHOSPHATASE 74 IU/L (46-116); ANION GAP 9 (8-16); ASPARTATE AMINO TRANSFERASE 12 U/L (10-37); BILIRUBIN,TOTAL 0.3 MG/DL (0.1-1.0); BLOOD UREA NITROGEN 70 MG/DL (7-18); BUN/CREATININE RATIO 25.8 (6.6-38.0); CALCIUM 7.6 MG/DL (8.5-10.1); CHLORIDE 115 MMOL/L (99-107); CREATININE 2.71 MG/DL (0.40-0.90); GLUCOSE 91 MG/DL (70-104); SODIUM 145 MMOL/L (135-145); TOTAL CARBON DIOXIDE 21.1 MMOL/L (24-32); TOTAL PROTEIN 4.9 G/DL (6.4-8.2); eGFR 17 ML/MIN
--- NOTE | 2018-12-21 12:21 | NUR ---
reassessment: Pt PO remains poor since admit 0-25% meals 7 days in addition to severe weakness w/ anemia. LBM 12/14 with no routine bowel care likley effecting PO; ESTRELLA d/w RN for routine bowel care per MD approval since receiving PO Fe as well. Pt receiving megace but no improvement w/ PO likely from constipation. Given low PO and severe weakness pt qualifies for severe malnutrition at this time; MD notified. Pt currently AOx3 and not appropriate for malnutrition ed. Nepro TID never verified; ESTRELLA d/w RN for new Nepro order per RN since can start to send on meals. Dietary notified. Will continue to monitor. Recommendations: 1) Continue renal diet 2) Nepro TIDWM 3) Continue appetite stimulant per MD 4) Continue routine Thiamine and Folic acid given elevated MCV 5) Routine bowel care 6) weekly wts Addendum: 12/21/18 at [address] Amended: Links added.
[2018-12-21] MEDS: NUT.TX.IMP.RENAL FXN,LAC-REDUC (Nepro) 237 ML VANILLA PO SCH ×2 (13:00→17:55)
--- NOTE | 2018-12-21 14:20 | NUR ---
Gave report to Darion GRANT at this time.
--- NOTE | 2018-12-21 15:19 | NUR ---
pt arrived to unit in stable condition on bed. pt oriented to room, call light in reach, bed low, locked. pt alert and oriented.
[2018-12-21] MEDS ORDERED: lactulose 20gm/30ml cup PO ONE (17:50)
--- NOTE | 2018-12-21 18:30 | NUR ---
Patient in room PCU 3027. I have received report from Yasmin GRANT and had the opportunity to ask questions and assume patient care.
--- NOTE | 2018-12-21 18:36 | NUR ---
Problems reprioritized. Patient report given, questions answered & plan of care reviewed with Lucas RN.
[2018-12-21] MEDS: pantoprazole 40mg Tablet.DR PO SCH (19:58)
[2018-12-21] MEDS: insulin glargine (Lantus) pen - multi-dose SQ SCH (21:00)
[2018-12-22] MEDS: normal saline 1000ml 1,000 ML IV SCH ×2 (01:30→13:05)
[2018-12-22 02:00] VITALS: BP 113/72
[2018-12-22 05:53] LABS: BASOPHILS % (AUTO) 0.9 % (0-1); EOSINOPHILS # (AUTO) 0.1 X10'3 (0-0.9); EOSINOPHILS % (AUTO) 1.6 % (0-6); MEAN CORPUSCULAR HGB CONC 32.6 g/dL (33.0-36.5); MEAN CORPUSCULAR VOLUME 104.4 FL (78-98); MEAN PLATELET VOLUME 8.6 FL (7.4-10.4); MONOCYTES # (AUTO) 0.5 X10'3 (0-0.9); MONOCYTES % (AUTO) 10.7 % (2-12); NEUTROPHILS % (AUTO) 64.8 % (42-75); PLATELET COUNT 64 X10'3 (140-440); RED BLOOD COUNT 1.78 X10'6 (4.20-5.60); RED CELL DISTRIBUTION WIDTH 15.7 % (11.5-14.5); WHITE BLOOD COUNT 4.6 X10'3 (4.5-11.0)
[2018-12-22 06:00] VITALS: BP 134/107
[2018-12-22 06:02] LABS: ALANINE AMINOTRANSFERASE 13 U/L (12-78); ALBUMIN 2.2 G/DL (3.4-5.0); ALBUMIN/GLOBULIN RATIO 0.8 (1.1-1.5); ALKALINE PHOSPHATASE 74 IU/L (46-116); ANION GAP 15 (8-16); ASPARTATE AMINO TRANSFERASE 16 U/L (10-37); BILIRUBIN,TOTAL 0.3 MG/DL (0.1-1.0); BLOOD UREA NITROGEN 65 MG/DL (7-18); BUN/CREATININE RATIO 24.3 (6.6-38.0); CALCIUM 7.7 MG/DL (8.5-10.1); CHLORIDE 116 MMOL/L (99-107); CREATININE 2.67 MG/DL (0.40-0.90); GLUCOSE 73 MG/DL (70-104); SODIUM 150 MMOL/L (135-145); TOTAL CARBON DIOXIDE 18.6 MMOL/L (24-32); TOTAL PROTEIN 4.9 G/DL (6.4-8.2); eGFR 17 ML/MIN
[2018-12-22 06:21] LABS: HEMATOCRIT 18.5 % (35.0-45.0)
--- NOTE | 2018-12-22 06:31 | NUR ---
LINE TESTER NOTIFIED Critical value called LINE TESTER. Fabien Vanegas, pt H/H is 6.0/18.5. he is aware no new orders, pt is Jehova's witness
--- NOTE | 2018-12-22 06:33 | NUR ---
Patient in room PCU 3027. I have received report from [facility] and had the opportunity to ask questions and assume patient care.
--- NOTE | 2018-12-22 06:39 | NUR ---
Problems reprioritized. Patient report given, questions answered & plan of care reviewed with Liana Hanna RN.
[2018-12-22] MEDS: NUT.TX.IMP.RENAL FXN,LAC-REDUC (Nepro) 237 ML VANILLA PO SCH ×3 (08:00→18:00)
[2018-12-22] MEDS: pantoprazole 40mg Tablet.DR PO SCH ×2 (08:03→20:37)
[2018-12-22] MEDS: levoTHYROXINE 25mcg tablet PO SCH (08:04)
[2018-12-22] MEDS: atorvastatin 10mg tablet PO SCH (08:04)
[2018-12-22] MEDS: folic acid 1mg tablet PO SCH (08:04)
[2018-12-22] MEDS: calcium carbonate/vitamin D3 tablet PO SCH (08:05)
[2018-12-22] MEDS: thiamine 100mg tablet PO SCH (08:05)
[2018-12-22] MEDS: iron sucrose complex injection 100 MG in normal saline 100ml IV soln 100 ML IV SCH (08:06)
[2018-12-22] MEDS: megestrol acetate 400mg/10ml UD oral suspension PO SCH (08:14)
[2018-12-22] MEDS: epoetin 20,000 units/ml inj SQ SCH (08:31)
[2018-12-22 11:00] VITALS: BP 144/97
--- NOTE | 2018-12-22 13:13 | NUR ---
PAGER ID: [phone] MESSAGE: Ss. [id number] Michelle Quezada. Patient had burst of a-fib with heart rate of 160. Blood pressure 131/93. Pt is asymptomatic and heart rate is now in the 100's. Patient is in Sinus Tach. RUDY Sumner [phone]
[2018-12-22 15:00] VITALS: BP 124/71
--- NOTE | 2018-12-22 18:19 | NUR ---
Problems reprioritized. Patient report given, questions answered & plan of care reviewed with
--- NOTE | 2018-12-22 18:30 | NUR ---
Patient in room PCU 3027. I have received report from Liana GRANT and had the opportunity to ask questions and assume patient care.
[2018-12-22 18:32] VITALS: BP 160/79
--- NOTE | 2018-12-22 18:37 | NUR ---
Orientee documentation: I have reviewed and agree with interventions, assessments performed and documented by Taisha GRANT. Henrique Medication Administration: For this medication-pass time frame, medication were reviewed, dispensed, administered and documented per hospital policy by Taisha GRANT .
--- NOTE | 2018-12-22 20:00 | NUR ---
pt requested robles taken out so it was removed. sediment, cloudy urine noted
[2018-12-22] MEDS: insulin glargine (Lantus) pen - multi-dose SQ SCH (21:00)
--- NOTE | 2018-12-22 22:10 | NUR ---
pt voided small amount since robles removed
[2018-12-22 22:43] VITALS: BP 121/63
[2018-12-23] MEDS: normal saline 1000ml 1,000 ML IV SCH (02:02)
[2018-12-23 02:59] VITALS: BP 117/82
[2018-12-23 06:00] VITALS: BP 120/69
--- NOTE | 2018-12-23 06:00 | NUR ---
Problems reprioritized. Patient report given, questions answered & plan of care reviewed with Liana GRANT.
[2018-12-23 06:16] LABS: BASOPHILS % (AUTO) 0.8 % (0-1); EOSINOPHILS # (AUTO) 0.1 X10'3 (0-0.9); EOSINOPHILS % (AUTO) 1.6 % (0-6); LYMPHOCYTES # (AUTO) 1.2 X10'3 (1.1-4.8); LYMPHOCYTES % (AUTO) 25.8 % (21-51); MEAN CORPUSCULAR HGB CONC 32.7 g/dL (33.0-36.5); MEAN CORPUSCULAR VOLUME 103.9 FL (78-98); MEAN PLATELET VOLUME 8.1 FL (7.4-10.4); MONOCYTES # (AUTO) 0.5 X10'3 (0-0.9); MONOCYTES % (AUTO) 11.3 % (2-12); NEUTROPHILS # (AUTO) 2.8 X10'3 (1.8-7.7); NEUTROPHILS % (AUTO) 60.5 % (42-75); PLATELET COUNT 62 X10'3 (140-440); RED BLOOD COUNT 1.76 X10'6 (4.20-5.60); RED CELL DISTRIBUTION WIDTH 15.5 % (11.5-14.5); WHITE BLOOD COUNT 4.5 X10'3 (4.5-11.0)
[2018-12-23 06:18] LABS: HEMATOCRIT 18.3 % (35.0-45.0)
[2018-12-23 06:46] LABS: ALANINE AMINOTRANSFERASE 12 U/L (12-78); ALBUMIN 2.1 G/DL (3.4-5.0); ALBUMIN/GLOBULIN RATIO 0.8 (1.1-1.5); ALKALINE PHOSPHATASE 74 IU/L (46-116); ANION GAP 13 (8-16); ASPARTATE AMINO TRANSFERASE 15 U/L (10-37); BILIRUBIN,TOTAL 0.3 MG/DL (0.1-1.0); BLOOD UREA NITROGEN 60 MG/DL (7-18); BUN/CREATININE RATIO 22.9 (6.6-38.0); CALCIUM 7.4 MG/DL (8.5-10.1); CHLORIDE 119 MMOL/L (99-107); CREATININE 2.62 MG/DL (0.40-0.90); GLUCOSE 71 MG/DL (70-104); POTASSIUM 3.9 MMOL/L (3.5-5.1); SODIUM 150 MMOL/L (135-145); TOTAL CARBON DIOXIDE 18.4 MMOL/L (24-32); TOTAL PROTEIN 4.7 G/DL (6.4-8.2); eGFR 17 ML/MIN
--- NOTE | 2018-12-23 06:46 | NUR ---
Patient in room PCU 3027. I have received report from Kinsey and had the opportunity to ask questions and assume patient care.
[2018-12-23] MEDS: calcium carbonate/vitamin D3 tablet PO SCH (07:56)
[2018-12-23] MEDS: folic acid 1mg tablet PO SCH (07:57)
[2018-12-23] MEDS: atorvastatin 10mg tablet PO SCH (07:57)
[2018-12-23] MEDS: thiamine 100mg tablet PO SCH (07:57)
[2018-12-23] MEDS: levoTHYROXINE 25mcg tablet PO SCH (07:58)
[2018-12-23] MEDS: pantoprazole 40mg Tablet.DR PO SCH ×2 (07:58→21:00)
[2018-12-23] MEDS: megestrol acetate 400mg/10ml UD oral suspension PO SCH (07:58)
[2018-12-23] MEDS: NUT.TX.IMP.RENAL FXN,LAC-REDUC (Nepro) 237 ML VANILLA PO SCH ×3 (08:00→18:00)
[2018-12-23 11:00] VITALS: BP 135/75
[2018-12-23] MEDS: iron sucrose complex injection 100 MG in normal saline 100ml IV soln 95 ML IV SCH (11:03)
[2018-12-23 15:00] VITALS: BP 131/73
--- NOTE | 2018-12-23 18:20 | NUR ---
Problems reprioritized. Patient report given, questions answered & plan of care reviewed with
--- NOTE | 2018-12-23 18:30 | NUR ---
Patient in room PCU 3027. I have received report from isatu Scanlon and had the opportunity to ask questions and assume patient care.
[2018-12-23 19:00] VITALS: BP 124/66
[2018-12-23 23:00] VITALS: BP 124/68
--- NOTE | 2018-12-24 02:01 | NUR ---
pt got a skin tear in her sleep on right arm, cleaned and dried. clear fluid leaking from arm. steristrip, gauze, kerlex applied
[2018-12-24 02:44] VITALS: BP 158/71
[2018-12-24 06:26] LABS: BASOPHILS % (AUTO) 0.9 % (0-1); EOSINOPHILS # (AUTO) 0.1 X10'3 (0-0.9); EOSINOPHILS % (AUTO) 1.4 % (0-6); LYMPHOCYTES # (AUTO) 1.2 X10'3 (1.1-4.8); LYMPHOCYTES % (AUTO) 29.1 % (21-51); MEAN CORPUSCULAR HEMOGLOBIN 33.8 PG (27.0-31.0); MEAN CORPUSCULAR HGB CONC 32.5 g/dL (33.0-36.5); MEAN CORPUSCULAR VOLUME 103.9 FL (78-98); MEAN PLATELET VOLUME 8.8 FL (7.4-10.4); MONOCYTES # (AUTO) 0.5 X10'3 (0-0.9); MONOCYTES % (AUTO) 12.8 % (2-12); NEUTROPHILS # (AUTO) 2.3 X10'3 (1.8-7.7); NEUTROPHILS % (AUTO) 55.8 % (42-75); PLATELET COUNT 54 X10'3 (140-440); RED BLOOD COUNT 1.74 X10'6 (4.20-5.60); RED CELL DISTRIBUTION WIDTH 15.2 % (11.5-14.5); WHITE BLOOD COUNT 4.1 X10'3 (4.5-11.0)
--- NOTE | 2018-12-24 06:30 | NUR ---
Patient in room PCU 3026w. I have received report from RUDY Euceda and had the opportunity to ask questions and assume patient care. Pt asleep at this time, no distress noted.
--- NOTE | 2018-12-24 06:30 | NUR ---
Patient in room PCU 3027. I have received report from RUDY Euceda and had the opportunity to ask questions and assume patient care.
[2018-12-24 06:31] LABS: HEMATOCRIT 18.1 % (35.0-45.0); HEMOGLOBIN 5.9 g/dl (12.0-16.0)
--- NOTE | 2018-12-24 06:32 | NUR ---
Problems reprioritized. Patient report given, questions answered & plan of care reviewed with Amy and Liana RNs.
[2018-12-24 06:45] LABS: ANION GAP 11 (8-16); BLOOD UREA NITROGEN 58 MG/DL (7-18); BUN/CREATININE RATIO 21.8 (6.6-38.0); CALCIUM 7.4 MG/DL (8.5-10.1); CHLORIDE 119 MMOL/L (99-107); CREATININE 2.66 MG/DL (0.40-0.90); GLUCOSE 81 MG/DL (70-104); POTASSIUM 3.7 MMOL/L (3.5-5.1); SODIUM 150 MMOL/L (135-145); TOTAL CARBON DIOXIDE 20.4 MMOL/L (24-32); eGFR 17 ML/MIN
[2018-12-24 07:00] VITALS: BP 120/69
[2018-12-24 07:18] LABS: PLATELET ESTIMATE DECREASED
[2018-12-24 07:19] LABS: ANISOCYTOSIS 1+; MICROCYTOSIS 1+; POLYCHROMASIA 1+
[2018-12-24] MEDS: atorvastatin 10mg tablet PO SCH (07:36)
[2018-12-24] MEDS: pantoprazole 40mg Tablet.DR PO SCH ×2 (07:36→21:46)
[2018-12-24] MEDS: megestrol acetate 400mg/10ml UD oral suspension PO SCH (07:36)
[2018-12-24] MEDS: thiamine 100mg tablet PO SCH (07:37)
[2018-12-24] MEDS: folic acid 1mg tablet PO SCH (07:37)
[2018-12-24] MEDS: calcium carbonate/vitamin D3 tablet PO SCH (07:37)
[2018-12-24] MEDS: levoTHYROXINE 25mcg tablet PO SCH (07:37)
[2018-12-24] MEDS: iron sucrose complex injection 100 MG in normal saline 100ml IV soln 95 ML IV SCH (07:37)
[2018-12-24] MEDS: NUT.TX.IMP.RENAL FXN,LAC-REDUC (Nepro) 237 ML VANILLA PO SCH ×3 (07:41→18:00)
[2018-12-24] MEDS: epoetin 20,000 units/ml inj SQ SCH (08:00)
[2018-12-24 11:00] VITALS: BP 128/77
--- NOTE | 2018-12-24 13:42 | NUR ---
Reassessment: Patient's PO intake fluctuates however still poor, previously down to 0% then up to 25-50% on 12/23 however down to 0% at breakfast this morning. Pt continues with Nepro TID however only with 25% intake x 1 and 75% intake x 1 so mostly 0% PO intake of ONS. Pt continues with appetite stimulant and is working with kosher dietary service supervisor for food preferences. Per kosher dietary service supervisor pt requesting cottage cheese TID, RD okayed at this time given low PO intake. Per MD notes JONATHON improving and abdominal pain resolved however pt continues to be anemic likely secondary to chronic GIB and pt refusing blood transfusions. Pt continues with iron, thiamine, and folic acid supplementation. [facility] 12/23. Will continue to follow closely. Recommendations: 1) Continue renal diet; consider diet liberalization to regular given low PO intake 2) Nepro TIDWM; cottage cheese TID 3) Continue appetite stimulant per MD; encourage PO intake 4) Continue routine Thiamine and Folic acid given elevated MCV 5) Routine bowel care 6) weekly wts Addendum: 12/24/18 at [address] Amended: Links added.
[2018-12-24 15:00] VITALS: BP 121/59
--- NOTE | 2018-12-24 17:45 | NUR ---
Paged Dr. Mayo re foul urine. PAGER ID: [phone] MESSAGE: Fabio Quezada in [id number] has foul smelling cloudy urine. UA? Thanks! Amy GRANT [phone]
--- NOTE | 2018-12-24 17:53 | NUR ---
Orientee documentation: I have reviewed and agree with all interventions, assessments performed and documented by RUDY Gaines.
[2018-12-24 18:00] VITALS: BP 126/80
--- NOTE | 2018-12-24 18:24 | NUR ---
Problems reprioritized. Patient report given, questions answered & plan of care reviewed with RUDY Sandoval.
[2018-12-24 22:00] VITALS: BP 125/69
[2018-12-25 04:54] LABS: EOSINOPHILS # (AUTO) 0.1 X10'3 (0-0.9); EOSINOPHILS % (AUTO) 1.3 % (0-6); LYMPHOCYTES # (AUTO) 1.3 X10'3 (1.1-4.8); LYMPHOCYTES % (AUTO) 32.4 % (21-51); MEAN CORPUSCULAR HEMOGLOBIN 33.8 PG (27.0-31.0); MEAN CORPUSCULAR HGB CONC 32.6 g/dL (33.0-36.5); MEAN CORPUSCULAR VOLUME 103.8 FL (78-98); MEAN PLATELET VOLUME 8.6 FL (7.4-10.4); MONOCYTES # (AUTO) 0.4 X10'3 (0-0.9); MONOCYTES % (AUTO) 10.6 % (2-12); NEUTROPHILS # (AUTO) 2.2 X10'3 (1.8-7.7); NEUTROPHILS % (AUTO) 54.7 % (42-75); PLATELET COUNT 52 X10'3 (140-440); RED BLOOD COUNT 1.78 X10'6 (4.20-5.60); RED CELL DISTRIBUTION WIDTH 15.4 % (11.5-14.5)
[2018-12-25 05:14] LABS: ANION GAP 10 (8-16); BLOOD UREA NITROGEN 56 MG/DL (7-18); CALCIUM 7.3 MG/DL (8.5-10.1); CHLORIDE 121 MMOL/L (99-107); CREATININE 2.54 MG/DL (0.40-0.90); GLUCOSE 80 MG/DL (70-104); POTASSIUM 3.9 MMOL/L (3.5-5.1); SODIUM 150 MMOL/L (135-145); eGFR 18 ML/MIN
[2018-12-25 05:15] LABS: HEMATOCRIT 18.5 % (35.0-45.0)
--- NOTE | 2018-12-25 05:16 | NUR ---
Lab called with critical Hgb 6.0, Hct 18.5. Values are up from yesterday. Patient is Jehovah Witness and does not accept blood products.
--- NOTE | 2018-12-25 06:25 | NUR ---
Problems reprioritized. Patient report given, questions answered & plan of care reviewed with Myesha GRANT and José Luis GRANT.
[2018-12-25 06:47] VITALS: BP 118/65
--- NOTE | 2018-12-25 07:18 | NUR ---
wang WILCOX, regarding Critical H and H. PATIENT [facility] ROOM 3021m Has a critical lab 6.0 hemoglobin and 18.5 hemotcrit. expected finding pervious has critical h and h and positive occult, pt is a Jehovah witness. and refuse blood. José Luis Callahan rn ext [phone]
[2018-12-25] MEDS: megestrol acetate 400mg/10ml UD oral suspension PO SCH (07:44)
[2018-12-25] MEDS: calcium carbonate/vitamin D3 tablet PO SCH (07:44)
[2018-12-25] MEDS: pantoprazole 40mg Tablet.DR PO SCH ×2 (07:44→19:38)
[2018-12-25] MEDS: folic acid 1mg tablet PO SCH (07:44)
[2018-12-25] MEDS: atorvastatin 10mg tablet PO SCH (07:44)
[2018-12-25] MEDS: levoTHYROXINE 25mcg tablet PO SCH (07:44)
[2018-12-25] MEDS: potassium Cl 20 mEq SR tablet PO PRN (07:44)
[2018-12-25] MEDS: thiamine 100mg tablet PO SCH (07:44)
[2018-12-25] MEDS: NUT.TX.IMP.RENAL FXN,LAC-REDUC (Nepro) 237 ML VANILLA PO SCH ×3 (08:02→18:00)
[2018-12-25 09:59] LABS: CLARITY,URINE TURBID (Clear); COLOR,URINE YELLOW (Yellow); GLUCOSE, URINE NEGATIVE (Neg); KETONES,URINE NEGATIVE (Neg); LEUKOCYTE ESTERASE ,URINE LARGE (Neg); NITRITES, URINE NEGATIVE (Neg); OCCULT BLOOD,URINE MODERATE (Neg); PH,URINE 5.5 (4.8-8.0); PROTEIN,URINE TRACE mg/dl (Neg); UA COLLECTION TYPE NON-SPECIFIED; UROBILINOGEN,URINE 0.2 E.U/dL (0.2-1.0)
[2018-12-25 10:04] LABS: SQUAMOUS EPITHELIAL CELL,UR MODERATE /LPF (FEW); WBC,URINE TNTC /HPF (0-4)
[2018-12-25 10:05] LABS: BACTERIA,URINE 4+ /HPF (Neg); WBC CLUMPS,URINE MANY /HPF (NEGATIVE)
[2018-12-25 11:53] VITALS: BP 127/64
[2018-12-25] MEDS: iron sucrose complex injection 100 MG in normal saline 100ml IV soln 95 ML IV SCH (12:04)
[2018-12-25] MEDS ORDERED: CefTRIAXone/D5W-Rocephin 1gm 50 ML IV ONE (13:40)
--- NOTE | 2018-12-25 14:05 | NUR ---
KRUNAL and Michelle express that they want to remove password and confidential disclaimer from accounts of Michelle and Gaurav Gravesnagi so that we may disclose information to her son.
--- NOTE | 2018-12-25 14:50 | NUR ---
respiration 24 bpm after transfer to chair, ambulated 4 feet. Addendum: 12/25/18 at 1451 by José Luis Callahan RN Amended: Links added.
[2018-12-25 16:31] VITALS: BP 116/62
[2018-12-25 18:00] VITALS: BP 122/67
--- NOTE | 2018-12-25 18:12 | NUR ---
Problems reprioritized. Patient report given, questions answered & plan of care reviewed with RUDY COLON.
--- NOTE | 2018-12-25 18:50 | NUR ---
Patient in room PCU 3027. I have received report from Myesha GRANT/ José Luis GRANT and had the opportunity to ask questions and assume patient care. Patient resting in bed, assisted her with calling her house per her request. Will continue to monitor.
[2018-12-25 22:00] VITALS: BP 112/63
[2018-12-26 02:30] VITALS: BP 130/68
[2018-12-26 06:00] VITALS: BP 107/65
--- NOTE | 2018-12-26 06:16 | NUR ---
Problems reprioritized. Patient report given, questions answered & plan of care reviewed with Fabrizio RN. Patient resting, introduced to Fabrizio, denies needs at this time.
--- NOTE | 2018-12-26 06:30 | NUR ---
Patient in room PCU 3027. I have received report from Swetha GRANT and had the opportunity to ask questions and assume patient care.
[2018-12-26 06:39] LABS: BASOPHILS % (AUTO) 0.8 % (0-1); LYMPHOCYTES # (AUTO) 1.4 X10'3 (1.1-4.8); LYMPHOCYTES % (AUTO) 32.7 % (21-51); MEAN CORPUSCULAR HEMOGLOBIN 33.5 PG (27.0-31.0); MEAN CORPUSCULAR HGB CONC 32.3 g/dL (33.0-36.5); MEAN CORPUSCULAR VOLUME 103.5 FL (78-98); MEAN PLATELET VOLUME 8.4 FL (7.4-10.4); MONOCYTES # (AUTO) 0.4 X10'3 (0-0.9); MONOCYTES % (AUTO) 9.5 % (2-12); NEUTROPHILS # (AUTO) 2.3 X10'3 (1.8-7.7); RED BLOOD COUNT 1.87 X10'6 (4.20-5.60); RED CELL DISTRIBUTION WIDTH 15.3 % (11.5-14.5); WHITE BLOOD COUNT 4.1 X10'3 (4.5-11.0)
[2018-12-26 06:45] LABS: ANION GAP 10 (8-16); BLOOD UREA NITROGEN 54 MG/DL (7-18); BUN/CREATININE RATIO 20.7 (6.6-38.0); CALCIUM 7.1 MG/DL (8.5-10.1); CHLORIDE 122 MMOL/L (99-107); CREATININE 2.61 MG/DL (0.40-0.90); GLUCOSE 78 MG/DL (70-104); POTASSIUM 4.3 MMOL/L (3.5-5.1); SODIUM 151 MMOL/L (135-145); TOTAL CARBON DIOXIDE 19.3 MMOL/L (24-32); eGFR 17 ML/MIN
[2018-12-26] MEDS: megestrol acetate 400mg/10ml UD oral suspension PO SCH (07:27)
[2018-12-26] MEDS: thiamine 100mg tablet PO SCH (07:28)
[2018-12-26] MEDS: folic acid 1mg tablet PO SCH (07:28)
[2018-12-26] MEDS: levoTHYROXINE 25mcg tablet PO SCH (07:28)
[2018-12-26] MEDS: pantoprazole 40mg Tablet.DR PO SCH ×2 (07:28→21:07)
[2018-12-26] MEDS: atorvastatin 10mg tablet PO SCH (07:28)
[2018-12-26] MEDS: calcium carbonate/vitamin D3 tablet PO SCH (07:28)
[2018-12-26] MEDS: CefTRIAXone/D5W-Rocephin 1gm 50 ML IV SCH (07:29)
[2018-12-26 07:40] LABS: HEMOGLOBIN 6.3 g/dl (12.0-16.0)
[2018-12-26 07:41] LABS: HEMATOCRIT 19.4 % (35.0-45.0); PLATELET COUNT 46 X10'3 (140-440)
--- NOTE | 2018-12-26 07:55 | NUR ---
PAGER ID: [phone] MESSAGE: RE: Michelle Gravesnagi, Room: [facility]. Critical H/H 6.07/08.4 and plt: 46 -Fabrizio U [id number] Dr. Mayo paged concerning ciritical H/H . and Plt 46
[2018-12-26] MEDS: NUT.TX.IMP.RENAL FXN,LAC-REDUC (Nepro) 237 ML VANILLA PO SCH ×3 (08:00→21:06)
[2018-12-26] MEDS: iron sucrose complex injection 100 MG in normal saline 100ml IV soln 95 ML IV SCH (09:10)
[2018-12-26] MEDS: epoetin 20,000 units/ml inj SQ SCH (09:11)
[2018-12-26 11:00] VITALS: BP 110/63
[2018-12-26 15:00] VITALS: BP 113/56
--- NOTE | 2018-12-26 16:15 | NUR ---
Pt bladder scanned at 1600. 175ml.
[2018-12-26 18:00] VITALS: BP 135/81
--- NOTE | 2018-12-26 18:30 | NUR ---
Problems reprioritized. Patient report given, questions answered & plan of care reviewed with Isaías GRANT.
[2018-12-26 22:00] VITALS: BP 107/64
[2018-12-27 02:00] VITALS: BP 85/48
[2018-12-27 06:00] VITALS: BP 115/72
--- NOTE | 2018-12-27 06:30 | NUR ---
Patient in room PCU 3027. I have received report from Isaías GRANT and had the opportunity to ask questions and assume patient care.
[2018-12-27] MEDS: NUT.TX.IMP.RENAL FXN,LAC-REDUC (Nepro) 237 ML VANILLA PO SCH ×3 (08:00→20:08)
[2018-12-27] MEDS: thiamine 100mg tablet PO SCH (08:04)
[2018-12-27] MEDS: CefTRIAXone/D5W-Rocephin 1gm 50 ML IV SCH (08:04)
[2018-12-27] MEDS: calcium carbonate/vitamin D3 tablet PO SCH (08:04)
[2018-12-27] MEDS: megestrol acetate 400mg/10ml UD oral suspension PO SCH (08:04)
[2018-12-27] MEDS: atorvastatin 10mg tablet PO SCH (08:05)
[2018-12-27] MEDS: pantoprazole 40mg Tablet.DR PO SCH ×2 (08:05→20:08)
[2018-12-27] MEDS: folic acid 1mg tablet PO SCH (08:05)
[2018-12-27] MEDS: levoTHYROXINE 25mcg tablet PO SCH (08:05)
[2018-12-27] MEDS: iron sucrose complex injection 100 MG in normal saline 100ml IV soln 95 ML IV SCH (08:54)
[2018-12-27 08:58] LABS: ALBUMIN 2.1 G/DL (3.4-5.0); ANION GAP 9 (8-16); BLOOD UREA NITROGEN 51 MG/DL (7-18); BUN/CREATININE RATIO 20.9 (6.6-38.0); CALCIUM 7.2 MG/DL (8.5-10.1); CHLORIDE 121 MMOL/L (99-107); CREATININE 2.44 MG/DL (0.40-0.90); GLUCOSE 74 MG/DL (70-104); POTASSIUM 4.3 MMOL/L (3.5-5.1); SODIUM 149 MMOL/L (135-145); TOTAL CARBON DIOXIDE 18.6 MMOL/L (24-32); eGFR 19 ML/MIN
[2018-12-27 10:01] LABS: BASOPHILS # (AUTO) 0.1 X10'3 (0-0.2); BASOPHILS % (AUTO) 1.2 % (0-1); EOSINOPHILS # (AUTO) 0.1 X10'3 (0-0.9); EOSINOPHILS % (AUTO) 1.2 % (0-6); HEMATOCRIT 22.5 % (35.0-45.0); HEMOGLOBIN 7.1 g/dl (12.0-16.0); LYMPHOCYTES # (AUTO) 1.4 X10'3 (1.1-4.8); LYMPHOCYTES % (AUTO) 27.9 % (21-51); MEAN CORPUSCULAR HEMOGLOBIN 32.4 PG (27.0-31.0); MEAN CORPUSCULAR HGB CONC 31.4 g/dL (33.0-36.5); MEAN PLATELET VOLUME 9.2 FL (7.4-10.4); MONOCYTES # (AUTO) 0.4 X10'3 (0-0.9); MONOCYTES % (AUTO) 7.6 % (2-12); NEUTROPHILS # (AUTO) 3.1 X10'3 (1.8-7.7); NEUTROPHILS % (AUTO) 62.1 % (42-75); PLATELET COUNT 56 X10'3 (140-440); RED BLOOD COUNT 2.18 X10'6 (4.20-5.60); RED CELL DISTRIBUTION WIDTH 15.8 % (11.5-14.5)
[2018-12-27] MEDS: dextrose 5%-water 1,000 ML IV SCH (12:29)
--- NOTE | 2018-12-27 14:45 | NUR ---
Reassessment: Pt with very slowly improving appetite with most recent average PO intake more stable at 50% with fluctuations in acceptance of ONS, documented with 50% PO intake at dinner however refused at breakfast this morning. Pt still working with dietetic assistant for food preferences and receiving appetite stimulant as well as with RN encouraging PO intake. Fortunately pt with no wt loss however with wt gain likely r/t fluid with overall positive fluid balance and edema. Still no BM since 12/23, d/w dietary to send prunes with dinner tonight. Will continue to follow. Recommendations: 1) Continue renal diet; consider diet liberalization to regular given low PO intake 2) Nepro TIDWM; cottage cheese TID 3) Continue appetite stimulant per MD; encourage PO intake 4) Continue routine Thiamine and Folic acid given elevated MCV 5) Routine bowel care 6) weekly wts Addendum: 12/27/18 at [address] Amended: Links added.
[2018-12-27 15:00] VITALS: BP 111/65
--- NOTE | 2018-12-27 18:30 | NUR ---
Problems reprioritized. Patient report given, questions answered & plan of care reviewed with Sandi Junior RN.
--- NOTE | 2018-12-27 18:35 | NUR ---
Patient in room PCU 3027. I have received report from BHUMIKA GRANT and had the opportunity to ask questions and assume patient care.
[2018-12-27 19:00] VITALS: BP 118/76
[2018-12-27 23:00] VITALS: BP 111/69
[2018-12-28 02:00] VITALS: BP 114/75
[2018-12-28] MEDS: dextrose 5%-water 1,000 ML IV SCH (05:47)
[2018-12-28 06:00] VITALS: BP 117/67
--- NOTE | 2018-12-28 06:30 | NUR ---
Problems reprioritized. Patient report given, questions answered & plan of care reviewed with CHERELLE RN.
--- NOTE | 2018-12-28 06:56 | NUR ---
Patient in room PCU 3027. I have received report from RUDY WINSLOW and had the opportunity to ask questions and assume patient care.
[2018-12-28] MEDS: levoTHYROXINE 25mcg tablet PO SCH (07:24)
[2018-12-28] MEDS: NUT.TX.IMP.RENAL FXN,LAC-REDUC (Nepro) 237 ML VANILLA PO SCH ×3 (08:19→18:00)
[2018-12-28] MEDS: CefTRIAXone/D5W-Rocephin 1gm 50 ML IV SCH (08:21)
[2018-12-28] MEDS: folic acid 1mg tablet PO SCH (08:31)
[2018-12-28] MEDS: atorvastatin 10mg tablet PO SCH (08:32)
[2018-12-28] MEDS: megestrol acetate 400mg/10ml UD oral suspension PO SCH (08:32)
[2018-12-28] MEDS: calcium carbonate/vitamin D3 tablet PO SCH (08:33)
[2018-12-28] MEDS: thiamine 100mg tablet PO SCH (08:34)
[2018-12-28] MEDS: pantoprazole 40mg Tablet.DR PO SCH ×2 (08:34→20:19)
[2018-12-28] MEDS: iron sucrose complex injection 100 MG in normal saline 100ml IV soln 95 ML IV SCH (09:55)
--- NOTE | 2018-12-28 10:36 | NUR ---
Follow up Chest x-ray ordered for Pt this morning 12/28/18. Comment for reason was "Chest tube follow up", which was the comment for another Pt. Radiology called and made aware, as well as MD. No new changes or orders.
[2018-12-28 11:00] VITALS: BP 145/61
[2018-12-28 11:22] LABS: ALBUMIN 1.8 G/DL (3.4-5.0); ANION GAP 12 (8-16); BLOOD UREA NITROGEN 45 MG/DL (7-18); BUN/CREATININE RATIO 18.4 (6.6-38.0); CALCIUM 6.6 MG/DL (8.5-10.1); CHLORIDE 119 MMOL/L (99-107); CREATININE 2.44 MG/DL (0.40-0.90); GLUCOSE 85 MG/DL (70-104); SODIUM 147 MMOL/L (135-145); TOTAL CARBON DIOXIDE 16.4 MMOL/L (24-32); eGFR 19 ML/MIN
[2018-12-28 11:40] LABS: BASOPHILS % (AUTO) 0.9 % (0-1); EOSINOPHILS # (AUTO) 0.1 X10'3 (0-0.9); EOSINOPHILS % (AUTO) 1.5 % (0-6); LYMPHOCYTES # (AUTO) 1.3 X10'3 (1.1-4.8); LYMPHOCYTES % (AUTO) 25.3 % (21-51); MEAN CORPUSCULAR HEMOGLOBIN 32.3 PG (27.0-31.0); MEAN CORPUSCULAR HGB CONC 31.7 g/dL (33.0-36.5); MEAN CORPUSCULAR VOLUME 102.2 FL (78-98); MEAN PLATELET VOLUME 9.5 FL (7.4-10.4); MONOCYTES # (AUTO) 0.4 X10'3 (0-0.9); MONOCYTES % (AUTO) 7.6 % (2-12); NEUTROPHILS # (AUTO) 3.2 X10'3 (1.8-7.7); NEUTROPHILS % (AUTO) 64.7 % (42-75); PLATELET COUNT 52 X10'3 (140-440); RED BLOOD COUNT 2.05 X10'6 (4.20-5.60); RED CELL DISTRIBUTION WIDTH 15.9 % (11.5-14.5)
[2018-12-28 11:48] LABS: HEMOGLOBIN 6.6 g/dl (12.0-16.0)
--- NOTE | 2018-12-28 11:52 | NUR ---
PAGER ID: [phone] MESSAGE: DR. DENIS, [id number]/TOBY PARHAM H+H 6.6/21.0. CHERELLE [id number], TY.
[2018-12-28 15:00] VITALS: BP 116/62
[2018-12-28 18:00] VITALS: BP 127/72
--- NOTE | 2018-12-28 18:42 | NUR ---
Patient in room PCU 3027. I have received report from Shaheen GRANT and had the opportunity to ask questions and assume patient care.
--- NOTE | 2018-12-28 18:44 | NUR ---
Problems reprioritized. Patient report given, questions answered & plan of care reviewed with RUDY JOHNSON.
[2018-12-28 22:00] VITALS: BP 127/63
[2018-12-29 02:00] VITALS: BP 114/68
[2018-12-29] MEDS: dextrose 5%-water 1,000 ML IV SCH (03:02)
--- NOTE | 2018-12-29 05:49 | NUR ---
Orientee documentation: I have reviewed and agree with all interventions, assessments performed and documented by Radha GRANT. Orientee Medication Administration: For this medication-pass time frame, all medication were reviewed, dispensed, administered and documented per hospital policy by Radha GRANT.
--- NOTE | 2018-12-29 06:14 | NUR ---
Problems reprioritized. Patient report given, questions answered & plan of care reviewed with Destiny GRANT.
[2018-12-29 06:26] LABS: MEAN CORPUSCULAR HGB CONC 31.3 g/dL (33.0-36.5); MEAN PLATELET VOLUME 9.6 FL (7.4-10.4); PLATELET COUNT 56 X10'3 (140-440); RED BLOOD COUNT 2.01 X10'6 (4.20-5.60); RED CELL DISTRIBUTION WIDTH 16.2 % (11.5-14.5); WHITE BLOOD COUNT 4.3 X10'3 (4.5-11.0)
[2018-12-29 06:31] LABS: HEMATOCRIT 20.5 % (35.0-45.0); HEMOGLOBIN 6.4 g/dl (12.0-16.0)
--- NOTE | 2018-12-29 06:33 | NUR ---
Paged Dr. Mayo: PAGER ID: [phone] MESSAGE: RE: Ludivina Quezadaley 3021Y. Critcal labs: Hgb: 6.4, Hct: 20.5, Platelets: 56. Thank you. Destiny [phone]
--- NOTE | 2018-12-29 06:36 | NUR ---
Patient in room PCU 3027. I have received report from Wang GRANT and had the opportunity to ask questions and assume patient care. Patient asleep in bed. D5 @ 50 mL/hour infusing. All immediate needs met.
[2018-12-29 06:42] LABS: ALBUMIN 1.8 G/DL (3.4-5.0); ANION GAP 9 (8-16); BLOOD UREA NITROGEN 43 MG/DL (7-18); CALCIUM 6.8 MG/DL (8.5-10.1); CHLORIDE 117 MMOL/L (99-107); CREATININE 2.26 MG/DL (0.40-0.90); GLUCOSE 99 MG/DL (70-104); POTASSIUM 3.9 MMOL/L (3.5-5.1); SODIUM 144 MMOL/L (135-145); TOTAL CARBON DIOXIDE 18.3 MMOL/L (24-32); eGFR 21 ML/MIN
[2018-12-29 07:00] VITALS: BP 147/69
[2018-12-29] MEDS: CefTRIAXone/D5W-Rocephin 1gm 50 ML IV SCH (08:10)
[2018-12-29] MEDS: megestrol acetate 400mg/10ml UD oral suspension PO SCH (08:11)
[2018-12-29] MEDS: calcium carbonate/vitamin D3 tablet PO SCH (08:11)
[2018-12-29] MEDS: thiamine 100mg tablet PO SCH (08:11)
[2018-12-29] MEDS: atorvastatin 10mg tablet PO SCH (08:11)
[2018-12-29] MEDS: pantoprazole 40mg Tablet.DR PO SCH ×2 (08:11→19:06)
[2018-12-29] MEDS: epoetin 20,000 units/ml inj SQ SCH (08:11)
[2018-12-29] MEDS: folic acid 1mg tablet PO SCH (08:11)
[2018-12-29] MEDS: NUT.TX.IMP.RENAL FXN,LAC-REDUC (Nepro) 237 ML VANILLA PO SCH ×3 (08:11→18:34)
[2018-12-29] MEDS: levoTHYROXINE 25mcg tablet PO SCH (08:22)
[2018-12-29] MEDS: furosemide 20 MG/2 ML vial IV SCH ×2 (09:13→19:06)
[2018-12-29] MEDS: iron sucrose complex injection 100 MG in normal saline 100ml IV soln 95 ML IV SCH (09:14)
[2018-12-29] MEDS: ondansetron/PF 4mg/2ml inj IV PRN (10:46)
[2018-12-29 11:00] VITALS: BP 106/65
--- NOTE | 2018-12-29 11:55 | NUR ---
Pt requests creamy soup on renal diet; closest to meet diet restriction is low Na tomato soup. Dietary notified to send w/ dinner ojeyight. Addendum: 12/29/18 at [address] Amended: Links added.
[2018-12-29 15:00] VITALS: BP 122/66
[2018-12-29 18:00] VITALS: BP 121/72
--- NOTE | 2018-12-29 18:05 | NUR ---
Patient in room U 3010. I have received report from Destiny GRANT and had the opportunity to ask questions and assume patient care. Addendum: 12/29/18 at 1806 by Vanesa Bains RN [id number]
--- NOTE | 2018-12-29 18:13 | NUR ---
Problems reprioritized. Patient report given, questions answered & plan of care reviewed with Wang GRANT. Patient stable at transfer of care.
[2018-12-29 22:00] VITALS: BP 99/66
[2018-12-30 02:00] VITALS: BP 104/61
--- NOTE | 2018-12-30 06:22 | NUR ---
Problems reprioritized. Patient report given, questions answered & plan of care reviewed with Destiny GRANT.
--- NOTE | 2018-12-30 06:39 | NUR ---
Patient in room PCU 3027. I have received report from Tali GRANT/Alisa RN and had the opportunity to ask questions and assume patient care.
[2018-12-30 07:00] VITALS: BP 115/57
[2018-12-30] MEDS: levoTHYROXINE 25mcg tablet PO SCH (07:23)
[2018-12-30] MEDS: furosemide 20 MG/2 ML vial IV SCH ×2 (07:23→19:36)
[2018-12-30] MEDS: thiamine 100mg tablet PO SCH (07:24)
[2018-12-30] MEDS: pantoprazole 40mg Tablet.DR PO SCH ×2 (07:24→19:36)
[2018-12-30] MEDS: iron sucrose complex injection 100 MG in normal saline 100ml IV soln 95 ML IV SCH (07:24)
[2018-12-30] MEDS: folic acid 1mg tablet PO SCH (07:24)
[2018-12-30] MEDS: megestrol acetate 400mg/10ml UD oral suspension PO SCH (07:25)
[2018-12-30] MEDS: atorvastatin 10mg tablet PO SCH (07:25)
[2018-12-30] MEDS: calcium carbonate/vitamin D3 tablet PO SCH (07:25)
[2018-12-30] MEDS: NUT.TX.IMP.RENAL FXN,LAC-REDUC (Nepro) 237 ML VANILLA PO SCH ×3 (08:00→19:37)
[2018-12-30 08:07] LABS: ALBUMIN 1.9 G/DL (3.4-5.0); ANION GAP 10 (8-16); BLOOD UREA NITROGEN 41 MG/DL (7-18); BUN/CREATININE RATIO 17.4 (6.6-38.0); CALCIUM 6.7 MG/DL (8.5-10.1); CHLORIDE 116 MMOL/L (99-107); CREATININE 2.35 MG/DL (0.40-0.90); GLUCOSE 68 MG/DL (70-104); POTASSIUM 3.8 MMOL/L (3.5-5.1); SODIUM 145 MMOL/L (135-145); TOTAL CARBON DIOXIDE 19.2 MMOL/L (24-32); eGFR 20 ML/MIN
[2018-12-30 11:00] VITALS: BP 107/64
[2018-12-30 15:00] VITALS: BP 109/56
[2018-12-30 18:00] VITALS: BP 103/68
--- NOTE | 2018-12-30 18:22 | NUR ---
Problems reprioritized. Patient report given, questions answered & plan of care reviewed with Tail GRANT/Alisa GRANT. Pt stable at transfer of care.
--- NOTE | 2018-12-30 18:23 | NUR ---
Patient in room PCU 3027. I have received report from Destiny GRANT and Maria A RN and had the opportunity to ask questions and assume patient care.
--- NOTE | 2018-12-30 18:24 | NUR ---
Problems reprioritized. Patient report given, questions answered & plan of care reviewed with RUDY Piña. Patient stable at transfer of care.
--- NOTE | 2018-12-30 18:29 | NUR ---
Orientee documentation: I have reviewed and agree with all interventions, assessments performed and documented by RUDY Saha. Orientee Medication Administration: For this medication-pass time frame, all medication were reviewed, dispensed, administered and documented per hospital policy by RUDY Saha.
[2018-12-30 22:00] VITALS: BP 114/58
[2018-12-31 02:00] VITALS: BP 144/57
[2018-12-31 06:00] VITALS: BP 124/55
--- NOTE | 2018-12-31 06:05 | NUR ---
Problems reprioritized. Patient report given, questions answered & plan of care reviewed with Destiny GRANT and Maria A RN.
--- NOTE | 2018-12-31 06:20 | NUR ---
Patient in room PCU 3027. I have received report from Tali GRANT/Alisa RN and had the opportunity to ask questions and assume patient care.
--- NOTE | 2018-12-31 06:20 | NUR ---
Patient in room PCU 3027. I have received report from Wang GRANT and had the opportunity to ask questions and assume patient care. Patient asleep in bed. All immediate needs met.
[2018-12-31] MEDS: levoTHYROXINE 25mcg tablet PO SCH (06:45)
--- NOTE | 2018-12-31 08:03 | NUR ---
Patient stable for transfer to [facility]. Report called to receiving RNRanjeet. Wound photo taken for chart. All patient belongings packed up and sent with patient. PIV discontinued, cannula intact. Telemetry monitoring discontinued and returned to teletray operator. Patient transported by [employer] personnel via wheelchair. Patient transfer packet sent. Vital signs stable at transfer of care.
== END 2018-12-31 08:08 | DRG 377 ==
LOC: ER 05:35 → EEVIPCON 11:56 → CICU 2S 11:56 → CMPBEDREQ 12-15 19:34 → MED 3N 12-19 17:15 → PCU 3S 12-21 14:50
PROVIDERS: ADMIT Internal Medicine Critical Care Medicine; ATTEND Internal Medicine
PROC: 02H633Z Insertion of Infusion Device into Right Atrium, Percutaneous Approach (ICD-10-PCS; principal; 2018-12-14)
PROC: B244ZZZ Ultrasonography of Right Heart (ICD-10-PCS; 2018-12-14)
DX: K92.2 Gastrointestinal hemorrhage, unspecified (principal); R57.1 Hypovolemic shock; E43 Unspecified severe protein-calorie malnutrition; I50.43 Acute on chronic combined systolic (congestive) and diastolic (congestive) heart failure; D62 Acute posthemorrhagic anemia; I13.0 Hypertensive heart and chronic kidney disease with heart failure and stage 1 through stage 4 chronic kidney disease, or unspecified chronic kidney disease; N17.9 Acute kidney failure, unspecified; N18.4 Chronic kidney disease, stage 4 (severe); N39.0 Urinary tract infection, site not specified; E87.0 Hyperosmolality and hypernatremia; E87.2 Acidosis; D68.32 Hemorrhagic disorder due to extrinsic circulating anticoagulants; B96.20 Unspecified Escherichia coli [E. coli] as the cause of diseases classified elsewhere; D69.6 Thrombocytopenia, unspecified; E03.9 Hypothyroidism, unspecified; E11.22 Type 2 diabetes mellitus with diabetic chronic kidney disease; E78.00 Pure hypercholesterolemia, unspecified; F03.90 Unspecified dementia, unspecified severity, without behavioral disturbance, psychotic disturbance, mood disturbance, and anxiety; I25.10 Atherosclerotic heart disease of native coronary artery without angina pectoris; I48.91 Unspecified atrial fibrillation; K76.89 Other specified diseases of liver; I95.9 Hypotension, unspecified; K57.30 Diverticulosis of large intestine without perforation or abscess without bleeding; T45.515A Adverse effect of anticoagulants, initial encounter; K31.4 Gastric diverticulum; D50.9 Iron deficiency anemia, unspecified; B96.4 Proteus (mirabilis) (morganii) as the cause of diseases classified elsewhere; Z88.6 Allergy status to analgesic agent; Z88.1 Allergy status to other antibiotic agents; Z88.0 Allergy status to penicillin; Z88.8 Allergy status to other drugs, medicaments and biological substances; Z79.899 Other long term (current) drug therapy; Z85.3 Personal history of malignant neoplasm of breast; Z85.828 Personal history of other malignant neoplasm of skin; Y92.89 Other specified places as the place of occurrence of the external cause; Z68.31 Body mass index [BMI] 31.0-31.9, adult
CPT/HCPCS: 36415; 36556; 71045; 74176; 80048; 80053; 80069; 81001; 82272; 82570; 82728; 82948; 83036; 83540; 83550; 83605; 83690; 83735; 83880; 84156; 84443; 85025; 85027; 85610; 87040; 87077; 87081; 87088; 87186; 87207; 93005; 93306; 97110; 97116; 97162; 97530; 99291; 99292; C9113; G0378; J0696; J1756; J1815; J1940; J2270; J2354; J2405; J2916; J3475; J7030; J7050; J7060; J7070; P9047; Q0163; Q4081

== ENCOUNTER 2019-04-11 17:18 | Emergency (ER) | payer MEDICAID, MEDICARE ==
[~2019-04-11] VITALS: Ht 157.5 cm; Wt 50.9 kg
[~2019-04-11 17:18] MED LIST changes: +FURO-150 PO; +LEVO25TA2 PO
[2019-04-11] MEDS ORDERED: normal saline 1000ml 1,000 ML IV ONE (18:22)
[2019-04-11] MEDS ORDERED: normal saline 1000ML IV soln IVB ONE (18:25)
--- NOTE | 2019-04-11 18:53 | NUR ---
ALEXIS GRANT ATTEMPTING ULTRASOUND GUIDED IV PLACEMENT AFTER MY 2 IV ATTEMPTS
[2019-04-11 19:59] LABS: BASOPHILS # (AUTO) 0.1 X10'3 (0-0.2); BASOPHILS % (AUTO) 0.7 % (0-1); EOSINOPHILS % (AUTO) 0.6 % (0-6); HEMATOCRIT 32.7 % (35.0-45.0); HEMOGLOBIN 10.7 g/dl (12.0-16.0); LYMPHOCYTES # (AUTO) 1.5 X10'3 (1.1-4.8); LYMPHOCYTES % (AUTO) 18.5 % (21-51); MEAN CORPUSCULAR HGB CONC 32.7 g/dL (33.0-36.5); MEAN CORPUSCULAR VOLUME 91.5 FL (78-98); MEAN PLATELET VOLUME 8.6 FL (7.4-10.4); MONOCYTES # (AUTO) 0.7 X10'3 (0-0.9); NEUTROPHILS # (AUTO) 5.9 X10'3 (1.8-7.7); NEUTROPHILS % (AUTO) 71.2 % (42-75); PLATELET COUNT 126 X10'3 (140-440); RED BLOOD COUNT 3.57 X10'6 (4.20-5.60); RED CELL DISTRIBUTION WIDTH 21.3 % (11.5-14.5); WHITE BLOOD COUNT 8.3 X10'3 (4.5-11.0)
[2019-04-11 20:01] LABS: ALANINE AMINOTRANSFERASE 15 U/L (12-78); ALBUMIN 1.4 G/DL (3.4-5.0); ALBUMIN/GLOBULIN RATIO 0.4 (1.1-1.5); ALKALINE PHOSPHATASE 89 IU/L (46-116); ANION GAP 6 (8-16); ASPARTATE AMINO TRANSFERASE 19 U/L (10-37); BILIRUBIN,TOTAL 0.3 MG/DL (0.1-1.0); BLOOD UREA NITROGEN 39 MG/DL (7-18); BUN/CREATININE RATIO 28.1 (6.6-38.0); CALCIUM 7.6 MG/DL (8.5-10.1); CHLORIDE 108 MMOL/L (99-107); CREATININE 1.39 MG/DL (0.40-0.90); GLUCOSE 71 MG/DL (70-104); LIPASE 91 U/L (73-393); POTASSIUM 5.2 MMOL/L (3.5-5.1); SODIUM 138 MMOL/L (135-145); TOTAL CARBON DIOXIDE 23.8 MMOL/L (24-32); TOTAL PROTEIN 5.1 G/DL (6.4-8.2); eGFR 36 ML/MIN
[2019-04-11 21:46] LABS: CLARITY,URINE SLIGHTLY CLOUDY (Clear); COLOR,URINE YELLOW (Yellow); GLUCOSE, URINE NEGATIVE (Neg); KETONES,URINE NEGATIVE (Neg); LEUKOCYTE ESTERASE ,URINE SMALL (Neg); NITRITES, URINE NEGATIVE (Neg); OCCULT BLOOD,URINE LARGE (Neg); PH,URINE 5.5 (4.8-8.0); PROTEIN,URINE NEGATIVE (Neg); UA COLLECTION TYPE STRAIGHT CATH; UROBILINOGEN,URINE 0.2 E.U/dL (0.2-1.0)
[2019-04-11 22:02] LABS: BACTERIA,URINE FEW /HPF (Neg)
[2019-04-11 22:03] LABS: MUCUS STRANDS NONE SEEN /LPF (Neg); SQUAMOUS EPITHELIAL CELL,UR NONE SEEN /LPF (FEW)
[2019-04-11 22:04] LABS: WBC CLUMPS,URINE MODERATE /HPF (NEGATIVE); YEAST MODERATE /HPF (NEGATIVE)
[2019-04-11] MEDS ORDERED: CEPH500C5 PO (22:16)
--- NOTE | 2019-04-11 22:17 | NUR ---
First call out placed to son and daughter on file. No answer at this time.
[2019-04-11] MEDS ORDERED: CefTRIAXone/D5W-Rocephin 1gm 50 ML IV ONE (22:20)
--- NOTE | 2019-04-11 22:31 | NUR ---
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 Son informed that pt. needs transport tonight. Per son, he will come up with a ride for his mother.
[2019-04-11 22:34] LABS: ANISOCYTOSIS 3+; PLATELET ESTIMATE DECREASED
[2019-04-11 22:35] LABS: ACANTHOCYTES FEW; ELLIPTOCYTES 1+
--- NOTE | 2019-04-11 23:24 | NUR ---
Spoke with son for the second time and he is stating that he has no plans to transport mother at [place]. He is asking if pt. could be placed in a taxi and sent home. Son informed that pt. will need assistance from hospital back to her home. Son states that he will call taxi cab for him to get to the ER and accompany pt.
[2019-04-12 01:05] VITALS: BP 126/80
== END 2019-04-12 01:07 | disposition home or self-care (01) ==
LOC: ER 17:20
DX: N39.0 Urinary tract infection, site not specified (principal); R10.84 Generalized abdominal pain; I48.91 Unspecified atrial fibrillation; E78.00 Pure hypercholesterolemia, unspecified; I10 Essential (primary) hypertension; E11.9 Type 2 diabetes mellitus without complications; Z85.3 Personal history of malignant neoplasm of breast; Z98.890 Other specified postprocedural states; Z88.0 Allergy status to penicillin; Z88.5 Allergy status to narcotic agent; Z88.1 Allergy status to other antibiotic agents; Z79.899 Other long term (current) drug therapy; Z90.49 Acquired absence of other specified parts of digestive tract
CPT/HCPCS: 36415; 71045; 74176; 80053; 81001; 83605; 83690; 84484; 85025; 87088; 96365; 99284; J0696; J7030; J7040